=== PATIENT | male | born 1980 | race Caucasian/White ===

== ENCOUNTER 2025-01-11 12:56 | Inpatient (IN) | payer MEDICAID, OTHER, SELFPAY ==
--- NOTE | 2025-01-11 13:33 | HO.PM.IMCN ---
History of Present Illness Data of Consult Service Date: 01/11/25 Primary Care Provider: Unknown Physician HPI Reason for consult: Medical consult 44-year-old male with a history of polysubstance use, major depressive disorder, ADHD generalized anxiety disorder, PTSD, low testosterone levels, recently released from long-term 4 days ago presented to [facility] with suicide ideation with a plan to hang himself. Patient had a previous suicide attempt in 2018 and was on life support for prolonged period. EKG demonstrates normal sinus rhythm. His CMP without any abnormalities or evidence of renal or kidney impairment. CBC without leukocytosis or anemia. Tox screen positive for buprenorphine, negative for other substances. On exam he reports right shoulder discomfort and spasm. Also reports a small lipoma to the right side of his abdomen. Otherwise no acute health concerns. Reports that he was previously taking testosterone 0.2 mg 2 transdermal packets daily. He was diagnosed in 2018. Was previously receiving his testosterone gel in long-term. Review of Systems Review of Systems: Denies any shortness of breath, chest pain, palpitations, dizziness, lightheadedness, headaches, dysuria, abdominal pain or discomfort, nausea, vomiting or diarrhea. Denies chills, body aches, muscle aches, fatigue or weight loss. Reports right shoulder spasms. PMFSH Social History Household Members: None Housing: Homeless Housing Other:: couch hopping Patient Tobacco Use Status: Former Tobacco user Have you been hit, kicked, punched, or otherwise hurt by someone within the past year? If so, by whom?: No Do you feel safe in your current relationship?: No Current Relationship Is there a partner from a previous relationship who is making you feel unsafe now?: No Are you made to feel afraid or neglected: No Spiritual Healthcare Practices: n/a Yazidi Healthcare Practices: n/a Cultural Healthcare Practices: n/a Advance Directives: No Advance Directives Information Provided: No Do you have a plan to hurt others: No Plan Recently lost weight without trying: No How much weight loss: Not applicable Eating poorly because of decreased appetite: No Nutrition screen score: 0 Nutrition Risks: No Nutritional Risk Poor oral hygiene: No Meds Allergies Allergy/AdvReac Type Severity Reaction Status Date / Time ketorolac Allergy Hives Verified 01/11/25 13:27 olanzapine Allergy Shortness Verified 01/11/25 13:27 of Breath Active Medications: Current Medications Acetaminophen (Acetaminophen 325 Mg Tablet) 650 mg PO Q6H PRN PRN Reason: Headache/Pain, Scale 1-10 Al Hydroxide/Mg Hydroxide (Magnesium Hydrox/Alum Hydrox 30 Ml Oral.Susp) 30 ml PO Q6H PRN PRN Reason: Heartburn/Nausea Bupropion HCl (Bupropion Hcl Xl 300 Mg Tab.Er.24h) 300 mg PO QAM NELDA Hydroxyzine HCl (Hydroxyzine Hcl 25 Mg Tablet) 25 mg PO Q6H PRN PRN Reason: mild anxiety Magnesium Hydroxide (Milk Of Magnesia 30 Ml Oral.Susp) 30 ml PO DAILY PRN PRN Reason: Constipation Nicotine (Nicotine 21 Mg Patch.Td24) 21 mg TRANSDERMA DAILY PRN PRN Reason: smoking cessation Nicotine Polacrilex (Nicotine Polacrilex 2 Mg Gum) 4 mg BUCCAL Q2H PRN PRN Reason: Nicotine Cravings Trazodone HCl (Trazodone Hcl 50 Mg Tablet) 50 mg PO BEDTIME MRX1 PRN PRN Reason: Insomnia Home Medications ?Medication ?Instructions ?Recorded ?Confirmed ?Last Taken ?Type buprenorphine HCl 8 mg sublingual 24 mg sublingual DAILY 01/11/25 01/11/25 Unknown History tablet bupropion HCl 300 mg 24 hr tablet, 300 mg PO QAM 01/11/25 01/11/25 Unknown History extended release (Wellbutrin XL) lisdexamfetamine 30 mg capsule 30 mg PO DAILY 01/11/25 01/11/25 Unknown History (Vyvanse) trazodone 100 mg tablet 100 mg PO DAILY 01/11/25 01/11/25 Unknown History Physical Exam Vital Signs and Narrative: CONST: Alert and oriented, in NAD. Well nourished HEENT: Normocephalic, atraumatic, MMM, Eyes clear, Neck supple RESP: Lungs clear, RRR even and regular HEART:,RRR, S1, S2. No edema GI:Abdomen Soft NT, ND. + BS times four :Deferred SKIN: Warm dry and intact, no visible lesions or rashes. Small lipoma to right side of abdomen, another small lipoma to left upper arm. No evidence of redness, pain or swelling NEURO:CN II-XII Intact bilaterally, Sensation intact. Speech clear PSYCH: Normal affect Musculoskeletal: Full range of motion of shoulder Assessment and Plan (1) Hypogonadism in male: Status: Acute Plan 44-year-old male with a past medical history listed below, admitted to inpatient psych for increased depression and suicidal ideation. Admitted for stabilization. Polysubstance use/major depressive disorder/ADHD/PTSD/generalized anxiety disorder Treatment per psychiatric team On buprenorphine Hypogonadism We will check testosterone levels Previously taking AndroGel 16.2 mg packets 2 packets daily. Diagnosed in 2018. Right shoulder pain Treat with tizanidine and Tylenol as needed Chronic low back pain Patient takes gabapentin 800 mg 3 times daily Lidoderm patch daily Thank you for allowing me to participate in the care of this patient. Will follow with you, please notify medical provider with any changes in condition or concerns.
[2025-01-11 14:00] VITALS: BP 141/85; PULSE 69; RESP 16; TEMP 36.7; O2SAT 100
--- NOTE | 2025-01-11 17:42 | PC.ADMIT ---
Pt arrived at 1305 from [facility]. Pt reports having recent SI with a plan to hang himself with a rope, and in fact had the rope in hand. Pt called staff command and control officer who encouraged him to go to ED. To summarize pt reports being a and coming home from a tour in [facility] to find his had cheated. He reports that while they were both drunk a verbal altercation led to police being called. Pt assaulted police and did 3 years in care home. He was recently released, has currently ankle monitor. He is currently going through a divorce, reports being homeless and has been couch hopping. He suffers from PTSD from the and care home. Tox screen positive only for suboxone (pt takes subutex). He reports no ETOH or drug use since release from residential, but has had problems with both in the past. Skin check was unremarkable. He h is A&O x4, linear and logical, calm and cooperative. He signed a CV with EL. He is on 15min checks.
[2025-01-11 20:00] VITALS: BP 145/101; PULSE 84; RESP 16; TEMP 36.9; O2SAT 96
[2025-01-12 08:10] LABS: Alanine Aminotransferase 44 U/L (0-40); Albumin Level 4.1 g/dL (3.5-5.0); Alkaline Phosphatase 64 U/L (39-117); Anion Gap 10 (12-20); Aspartate Amino Transferase 35 U/L (5-37); Blood Urea Nitrogen 18 mg/dL (9-16); Calcium 9.3 mg/dL (8.4-10.2); Carbon Dioxide 31 mmol/L (22-29); Chloride 104 mmol/L (96-108); Cholesterol 176 mg/dL (<200); Estimated Glomerular Filt Rate > 60; HDL Cholesterol 55 mg/dL (>40); Potassium 5.0 mmol/L (3.3-5.1); Sodium 140 mmol/L (135-145); Total Protein 7.2 g/dL (6.5-8.0); Triglycerides 73 mg/dL (<150)
[2025-01-12] MEDS: buPROPion HCl XL 300 MG TAB.ER.24H PO (08:17)
[2025-01-12] MEDS: Dextroamphetamine/Amphetamine XR 10 MG CAP.ER.24H 20 MG PO (08:17)
--- NOTE | 2025-01-12 08:45 | HO.PSYADMNOT ---
HPI Date of Service: 01/12/25 Chief Complaint: decompensation Sources of Information: patient interviewed, chart reviewed and crisis/core team assessment reviewed HPI Subjective Notes: Galvan Warning, Conditional Voluntary and 3 Day Narrative: Patient is a 44-year-old with history of PTSD, remote substance abuse, ADHD, depression, low testosterone recently released from custodial 4 days ago who presents for suicidal ideation in the face of off medication psychosocial stressors. Patient reports that he has significant exposure to traumatic situations for his time in the and ongoing PTSD symptoms. Patient used to struggle with alcohol and opiate/pain killer addiction but has been fully sober for the past 4 years. In custodial, patient's mood was overall adequate on current medication regimen. This past week, suddenly without any warning he was released from custodial. He was not given any refills on any of his prescriptions. Off medications, without any chance to prepare for his discharge, no place to live Patient was overwhelmed, and became emotionally dysregulated. Patient became suicidal and had planned to hang himself with his belt. However he looked in the mirror, saw the tattoo of his daughter's name on his face and knew that he would not do this. Instead presented to the hospital for help. Patient was gratefully restarted on medication in the emergency room and is now feeling much better. Past Psychiatric History: History of 1 suicide attempt in 2018 by overdose; resulted in ICU admission Medical Evaluation Reviewed: Yes [facility] Medical History (Updated 01/12/25 @ 09:04 by Edgard Bennett MD) Opioid use disorder, moderate, in sustained remission PTSD (post-traumatic stress disorder) MDD (major depressive disorder) Family History: Defer Social History: [place] Has ex- and children Substance History: Sober for 4 years; previously alcohol 8 drinks daily; pain medication addiction, sober on Subutex Trauma History: Significant trauma from numerous combat experience Diagnostics Vital Signs (24Hr): Vital Signs - 24 hr 01/11/25 14:00 01/11/25 20:00 Temperature 98.1 F 98.4 F Pulse Rate 69 84 Respiratory Rate 16 16 Blood Pressure 141/85 H 145/101 H Pulse Oximetry 100 96 Oxygen Delivery Method Room Air Labs 01/12/25 07:42 Labs: Laboratory Results - last 48 hr 01/12/25 07:42 Sodium 140 Potassium 5.0 Chloride 104 Carbon Dioxide 31 H Anion Gap 10 L BUN 18 H Creatinine 0.88 Estim Creat Clear Calc TNP Estimated GFR > 60 Random Glucose 109 Estimat Average Glucose 126 Hemoglobin A1c % 6.0 Calcium 9.3 Total Bilirubin 0.2 AST 35 ALT 44 H Alkaline Phosphatase 64 Total Protein 7.2 Albumin 4.1 Triglycerides 73 Cholesterol 176 LDL Cholesterol, Calc 107 H HDL Cholesterol 55 TSH 1.32 Meds/Allergies Meds Home Medications ?Medication ?Instructions ?Recorded ?Confirmed ?Type buprenorphine HCl 8 mg sublingual 24 mg sublingual DAILY 01/11/25 01/11/25 History tablet bupropion HCl 300 mg 24 hr tablet, 300 mg PO QAM 01/11/25 01/11/25 History extended release (Wellbutrin XL) lisdexamfetamine 30 mg capsule 30 mg PO DAILY 01/11/25 01/11/25 History (Vyvanse) trazodone 100 mg tablet 100 mg PO DAILY 01/11/25 01/11/25 History Allergies Allergies Allergy/AdvReac Type Severity Reaction Status Date / Time ketorolac Allergy Hives Verified 01/11/25 13:27 olanzapine Allergy Shortness Verified 01/11/25 13:27 of Breath Assessment & Plan Assessment & Plan (1) MDD (major depressive disorder): Status: Acute Code(s): F32.9 - Major depressive disorder, single episode, unspecified (2) PTSD (post-traumatic stress disorder): Status: Acute Code(s): F43.10 - Post-traumatic stress disorder, unspecified (3) Hypogonadism in male: Status: Acute Code(s): E29.1 - Testicular hypofunction (4) Opioid use disorder, moderate, in sustained remission: Status: Acute Code(s): F11.21 - Opioid dependence, in remission Plan HPI: Patient is a 44-year-old with history of PTSD, remote substance abuse, ADHD, depression, low testosterone recently released from custodial 4 days ago who presents for suicidal ideation in the face of off medication psychosocial stressors. Patient reports that he has significant exposure to traumatic situations for his time in the and ongoing PTSD symptoms. Patient used to struggle with alcohol and opiate/pain killer addiction but has been fully sober for the past 4 years. In custodial, patient's mood was overall adequate on current medication regimen. This past week, suddenly without any warning he was released from custodial. He was not given any refills on any of his prescriptions. Off medications, without any chance to prepare for his discharge, no place to live Patient was overwhelmed, and became emotionally dysregulated. Patient became suicidal and had planned to hang himself with his belt. However he looked in the mirror, saw the tattoo of his daughter's name on his face and knew that he would not do this. Instead presented to the hospital for help. Patient was gratefully restarted on medication in the emergency room and is now feeling much better. Formulation/clinical reasoning: Patient seems to have been relatively stable while in custodial but depression anxiety researched when patient was suddenly released from custodial without any plans or medications. Patient was restarted on meds in ED and is starting to feel better. Patient is trying to put together plan Plan: CV Q 15 minute checks Continue home medications: Wellbutrin XL 300 mg Trazodone 100 mg q.h.s. Gabapentin 800 mg t.i.d. Subutex 24 mg daily Vyvanse/Adderall Androgen gel (not on formulary) Patient educated on: diagnosis, medication risk/benefits, substance abuse, therapeutic strategies and medical condition Informed Consent: understands Reason for continued inpatient stay Substantial Risk for: rapid decompensation Statement Statement: I have reviewed the history and physical and performed a pertinent examination on my patient. No changes have occurred unless specified. If the History and Physical was not performed prior to admission, the Hospitalist's service will be consulted for completing the admission physical. Time Spent With Patient Time: Total time managing care of this patient today ____ minutes.
[2025-01-12 11:55] VITALS: BP 126/89; PULSE 80; TEMP 36.4; O2SAT 99
--- NOTE | 2025-01-12 16:31 | HO.PSYCHPN ---
Subjective Subjective Date of Service: 01/12/25 Reason For Visit: decompensation Interim History: met with patient; discussed with team reports feeling better back on medications; mood is better and no SI. Reports difficult conversation w/ medical office secretary and pt just learned his ex- moved with the kids to [place]. He says he as joint custody and this illegal but says he'll work on himself first and then work w/ medical office secretary with this issue. Drawer In [employer] discussed coping strategies Mental Status Exam Mental Status Exam Narrative: Pt is alert and oriented; behavior is cooperative, friendly and calm; patient is not in distress; dressed in casual attire with unkempt hair but adequate hygiene; mood is described as ok and affect congruent; eye contact appropriate; Speech is normal rate, volume and prosody and not pressured; no psychomotor agitation/retardation present; thought process is organized and goal directed; Thought content is on tx; otherwise pertinent to relevant topics and without any delusional content, paranoid ideations or grandiosity; denies any SI/HI. Denies AVH and there is no evidence of perceptual disturbance. Patients insight and judgment appear intact. Diagnostics Vital Signs (24Hr): Vital Signs - 24 hr 01/11/25 20:00 01/12/25 11:55 Temperature 98.4 F 97.5 F Pulse Rate 84 80 Respiratory Rate 16 Blood Pressure 145/101 H 126/89 Pulse Oximetry 96 99 Oxygen Delivery Method Room Air Labs 01/12/25 07:42 Labs: Laboratory Results - last 48 hr 01/12/25 07:42 Sodium 140 Potassium 5.0 Chloride 104 Carbon Dioxide 31 H Anion Gap 10 L BUN 18 H Creatinine 0.88 Estim Creat Clear Calc TNP Estimated GFR > 60 Random Glucose 109 Estimat Average Glucose 126 Hemoglobin A1c % 6.0 Calcium 9.3 Total Bilirubin 0.2 AST 35 ALT 44 H Alkaline Phosphatase 64 Total Protein 7.2 Albumin 4.1 Triglycerides 73 Cholesterol 176 LDL Cholesterol, Calc 107 H HDL Cholesterol 55 TSH 1.32 Medications Medications Current Medications Acetaminophen (Acetaminophen 325 Mg Tablet) 650 mg PO Q6H PRN PRN Reason: Headache/Pain, Scale 1-10 Al Hydroxide/Mg Hydroxide (Magnesium Hydrox/Alum Hydrox 30 Ml Oral.Susp) 30 ml PO Q6H PRN PRN Reason: Heartburn/Nausea Amphetamine/Dextroamphetamine (Dextroamphetamine/Amphetamine Xr 10 Mg Cap.Er.24h) 20 mg PO DAILY [facility] Last Admin: 01/12/25 08:17 Dose: 20 mg Buprenorphine HCl (Buprenorphine Hcl 8 Mg Tab.Subl) 24 mg SUBLINGUAL DAILY [facility] Last Admin: 01/12/25 08:57 Dose: 24 mg Bupropion HCl (Bupropion Hcl Xl 300 Mg Tab.Er.24h) 300 mg PO DAILY [facility] Last Admin: 01/12/25 08:17 Dose: 300 mg Gabapentin (Gabapentin 400 Mg Capsule) 800 mg PO TID [facility] Last Admin: 01/12/25 15:32 Dose: 800 mg Hydroxyzine HCl (Hydroxyzine Hcl 25 Mg Tablet) 25 mg PO Q6H PRN PRN Reason: mild anxiety Lidocaine (Lidocaine 4 % Patch Adh..Patch) 1 patch TRANSDERMA DAILY [facility]; Protocol Last Admin: 01/12/25 10:15 Dose: Not Given Magnesium Hydroxide (Milk Of Magnesia 30 Ml Oral.Susp) 30 ml PO DAILY PRN PRN Reason: Constipation Nicotine (Nicotine 21 Mg Patch.Td24) 21 mg TRANSDERMA DAILY PRN PRN Reason: smoking cessation Nicotine Polacrilex (Nicotine Polacrilex 2 Mg Gum) 4 mg BUCCAL Q2H PRN PRN Reason: Nicotine Cravings Prazosin HCl (Prazosin Hcl 1 Mg Capsule) 2 mg PO BEDTIME [facility]; Protocol Last Admin: 01/11/25 20:30 Dose: 2 mg Promethazine HCl (Promethazine Hcl 25 Mg Tablet) 25 mg PO Q8H PRN PRN Reason: Nausea and Vomiting Last Admin: 01/11/25 16:32 Dose: 25 mg Tizanidine HCl (Tizanidine Hcl 4 Mg Tablet) 4 mg PO TID PRN PRN Reason: Muscle spasm Last Admin: 01/11/25 20:30 Dose: 4 mg Trazodone HCl (Trazodone Hcl 50 Mg Tablet) 50 mg PO BEDTIME MRX1 PRN PRN Reason: Insomnia Trazodone HCl (Trazodone Hcl 100 Mg Tablet) 100 mg PO BEDTIME [facility] Last Admin: 01/11/25 20:30 Dose: 100 mg Allergies Allergies Allergy/AdvReac Type Severity Reaction Status Date / Time ketorolac Allergy Hives Verified 01/11/25 13:27 olanzapine Allergy Shortness Verified 01/11/25 13:27 of Breath Assessment & Plan Assessment & Plan (1) MDD (major depressive disorder): Status: Acute Code(s): F32.9 - Major depressive disorder, single episode, unspecified (2) PTSD (post-traumatic stress disorder): Status: Acute Code(s): F43.10 - Post-traumatic stress disorder, unspecified (3) Hypogonadism in male: Status: Acute Code(s): E29.1 - Testicular hypofunction (4) Opioid use disorder, moderate, in sustained remission: Status: Acute Code(s): F11.21 - Opioid dependence, in remission Plan HPI: Patient is a 44-year-old with history of PTSD, remote substance abuse, ADHD, depression, low testosterone recently [facility] ago who presents for suicidal ideation in the face of off medication psychosocial stressors. Patient reports that he has significant exposure to traumatic situations for his time in the and ongoing PTSD symptoms. Patient used to struggle with alcohol and opiate/pain killer addiction but has been fully sober for the past 4 years. In penitentiary, patient's mood was overall adequate on current medication regimen. This past week, suddenly without any warning he was released from penitentiary. He was not given any refills on any of his prescriptions. Off medications, without any chance to prepare for his discharge, no place to live Patient was overwhelmed, and became emotionally dysregulated. Patient became suicidal and had planned to hang himself with his belt. However he looked in the mirror, saw the tattoo of his daughter's name on his face and knew that he would not do this. Instead presented to the hospital for help. Patient was gratefully restarted on medication in the emergency room and is now feeling much better. Formulation/clinical reasoning: Patient seems to have been relatively stable while in penitentiary but depression anxiety researched when patient was suddenly released from penitentiary without any plans or medications. Patient was restarted on meds in ED and is starting to feel better. Patient is trying to put together plan Plan: CV Q 15 minute checks Continue home medications: Wellbutrin XL 300 mg Trazodone 100 mg q.h.s. Gabapentin 800 mg t.i.d. Subutex 24 mg daily Vyvanse/Adderall Androgen gel (not on formulary) Patient educated on: diagnosis, medication risk/benefits and therapeutic strategies Informed Consent: understands Reason for continued inpatient stay Substantial Risk for: rapid decompensation Time Spent With Patient Time: Total time managing care of this patient today ____ minutes.
[2025-01-12 20:00] VITALS: BP 133/80; PULSE 83; RESP 18; TEMP 36.6; O2SAT 96
[2025-01-13 08:00] VITALS: BP 124/59; PULSE 88; TEMP 36.5; O2SAT 95
[2025-01-13] MEDS: Lidocaine 4 % Patch ADH..PATCH 1 PATCH TRANSDERMA (08:31)
[2025-01-13] MEDS: Dextroamphetamine/Amphetamine XR 10 MG CAP.ER.24H 20 MG PO (08:32)
[2025-01-13] MEDS: buPROPion HCl XL 300 MG TAB.ER.24H PO (08:32)
--- NOTE | 2025-01-13 09:57 | HO.PSYCHPN ---
Subjective Subjective Date of Service: 01/13/25 Reason For Visit: decompensation Interim History: Patient reports feeling OK. Respectful. Calm and cooperative. Says he is feeling medications are effective. Says he is working on checking off things I need to do. Wants to find where his took his daughter. No SI. Adherent to medications. Review of Systems Review of Systems Denies any shortness of breath, chest pain, palpitations, dizziness, lightheadedness, headaches, dysuria, abdominal pain or discomfort, nausea, vomiting or diarrhea. Denies chills, body aches, muscle aches, fatigue or weight loss. Reports right shoulder spasms. Diagnostics Vital Signs (24Hr): Vital Signs - 24 hr 01/12/25 11:55 01/12/25 20:00 Temperature 97.5 F 98 F Pulse Rate 80 83 Respiratory Rate 18 Blood Pressure 126/89 133/80 Pulse Oximetry 99 96 Oxygen Delivery Method Room Air Room Air Labs 01/12/25 07:42 Labs: Laboratory Results - last 48 hr 01/12/25 07:42 Sodium 140 Potassium 5.0 Chloride 104 Carbon Dioxide 31 H Anion Gap 10 L BUN 18 H Creatinine 0.88 Estim Creat Clear Calc TNP Estimated GFR > 60 Random Glucose 109 Estimat Average Glucose 126 Hemoglobin A1c % 6.0 Calcium 9.3 Total Bilirubin 0.2 AST 35 ALT 44 H Alkaline Phosphatase 64 Total Protein 7.2 Albumin 4.1 Triglycerides 73 Cholesterol 176 LDL Cholesterol, Calc 107 H HDL Cholesterol 55 TSH 1.32 Medications Medications Current Medications Acetaminophen (Acetaminophen 325 Mg Tablet) 650 mg PO Q6H PRN PRN Reason: Headache/Pain, Scale 1-10 Last Admin: 01/13/25 06:05 Dose: 650 mg Al Hydroxide/Mg Hydroxide (Magnesium Hydrox/Alum Hydrox 30 Ml Oral.Susp) 30 ml PO Q6H PRN PRN Reason: Heartburn/Nausea Amphetamine/Dextroamphetamine (Dextroamphetamine/Amphetamine Xr 10 Mg Cap.Er.24h) 20 mg PO DAILY [facility] Last Admin: 01/13/25 08:32 Dose: 20 mg Buprenorphine HCl (Buprenorphine Hcl 8 Mg Tab.Subl) 24 mg SUBLINGUAL DAILY [facility] Last Admin: 01/13/25 08:32 Dose: 24 mg Bupropion HCl (Bupropion Hcl Xl 300 Mg Tab.Er.24h) 300 mg PO DAILY [facility] Last Admin: 01/13/25 08:32 Dose: 300 mg Gabapentin (Gabapentin 400 Mg Capsule) 800 mg PO TID [facility] Last Admin: 01/13/25 08:32 Dose: 800 mg Hydroxyzine HCl (Hydroxyzine Hcl 25 Mg Tablet) 25 mg PO Q6H PRN PRN Reason: mild anxiety Lidocaine (Lidocaine 4 % Patch Adh..Patch) 1 patch TRANSDERMA DAILY [facility]; Protocol Last Admin: 01/13/25 08:31 Dose: 1 patch Magnesium Hydroxide (Milk Of Magnesia 30 Ml Oral.Susp) 30 ml PO DAILY PRN PRN Reason: Constipation Nicotine (Nicotine 21 Mg Patch.Td24) 21 mg TRANSDERMA DAILY PRN PRN Reason: smoking cessation Nicotine Polacrilex (Nicotine Polacrilex 2 Mg Gum) 4 mg BUCCAL Q2H PRN PRN Reason: Nicotine Cravings Prazosin HCl (Prazosin Hcl 1 Mg Capsule) 2 mg PO BEDTIME [facility]; Protocol Last Admin: 01/12/25 21:37 Dose: Not Given Promethazine HCl (Promethazine Hcl 25 Mg Tablet) 25 mg PO Q8H PRN PRN Reason: Nausea and Vomiting Last Admin: 01/13/25 09:26 Dose: 25 mg Tizanidine HCl (Tizanidine Hcl 4 Mg Tablet) 4 mg PO TID PRN PRN Reason: Muscle spasm Last Admin: 01/12/25 21:35 Dose: 4 mg Trazodone HCl (Trazodone Hcl 50 Mg Tablet) 50 mg PO BEDTIME MRX1 PRN PRN Reason: Insomnia Trazodone HCl (Trazodone Hcl 100 Mg Tablet) 100 mg PO BEDTIME [facility] Last Admin: 01/12/25 21:34 Dose: 100 mg Allergies Allergies Allergy/AdvReac Type Severity Reaction Status Date / Time ketorolac Allergy Hives Verified 01/11/25 13:27 olanzapine Allergy Shortness Verified 01/11/25 13:27 of Breath Assessment & Plan Assessment & Plan (1) MDD (major depressive disorder): Status: Acute Code(s): F32.9 - Major depressive disorder, single episode, unspecified (2) PTSD (post-traumatic stress disorder): Status: Acute Code(s): F43.10 - Post-traumatic stress disorder, unspecified (3) Hypogonadism in male: Status: Acute Code(s): E29.1 - Testicular hypofunction (4) Opioid use disorder, moderate, in sustained remission: Status: Acute Code(s): F11.21 - Opioid dependence, in remission Plan HPI: Patient is a 44-year-old with history of PTSD, remote substance abuse, ADHD, depression, low testosterone recently released from care home 4 days ago who presents for suicidal ideation in the face of off medication psychosocial stressors. Patient reports that he has significant exposure to traumatic situations for his time in the and ongoing PTSD symptoms. Patient used to struggle with alcohol and opiate/pain killer addiction but has been fully sober for the past 4 years. In care home, patient's mood was overall adequate on current medication regimen. This past week, suddenly without any warning he was released from care home. He was not given any refills on any of his prescriptions. Off medications, without any chance to prepare for his discharge, no place to live Patient was overwhelmed, and became emotionally dysregulated. Patient became suicidal and had planned to hang himself with his belt. However he looked in the mirror, saw the tattoo of his daughter's name on his face and knew that he would not do this. Instead presented to the hospital for help. Patient was gratefully restarted on medication in the emergency room and is now feeling much better. Formulation/clinical reasoning: Patient seems to have been relatively stable while in care home but depression anxiety researched when patient was suddenly released from care home without any plans or medications. Patient was restarted on meds in ED and is starting to feel better. Patient is trying to put together plan Plan: CV Q 15 minute checks Continue home medications: Wellbutrin XL 300 mg Trazodone 100 mg q.h.s. Gabapentin 800 mg t.i.d. Subutex 24 mg daily Vyvanse/Adderall Androgen gel (not on formulary) 01/13: continue current management and treatment plan. Reason for continued inpatient stay Substantial Risk for: inability to function and rapid decompensation Time Spent With Patient Time: Total time managing care of this patient today ____ minutes.
[2025-01-13 20:29] VITALS: BP 130/74; PULSE 92; RESP 18; TEMP 36.9; O2SAT 99
[2025-01-14 08:21] VITALS: BP 130/88; PULSE 85; TEMP 36.3; O2SAT 96
[2025-01-14] MEDS: Dextroamphetamine/Amphetamine XR 10 MG CAP.ER.24H 20 MG PO (08:52)
[2025-01-14] MEDS: buPROPion HCl XL 300 MG TAB.ER.24H PO (08:55)
--- NOTE | 2025-01-14 09:28 | HO.PSYCHPN ---
Subjective Subjective Date of Service: 01/14/25 Reason For Visit: decompensation Interim History: Patient reports feeling aggravated today but I was able to walk away Apparently a patient took the remote to the other TV room before he could find the [employer] channel and he got irritated but says he stayed in control and I just walked away . Says he is feeling medications are effective. Says he is working on tasks after discharge. No SI. Adherent to medications. Review of Systems Review of Systems Denies any shortness of breath, chest pain, palpitations, dizziness, lightheadedness, headaches, dysuria, abdominal pain or discomfort, nausea, vomiting or diarrhea. Denies chills, body aches, muscle aches, fatigue or weight loss. Reports right shoulder spasms. Diagnostics Vital Signs (24Hr): Vital Signs - 24 hr 01/13/25 20:29 01/14/25 08:21 Temperature 98.5 F 97.3 F Pulse Rate 92 85 Respiratory Rate 18 Blood Pressure 130/74 130/88 Pulse Oximetry 99 96 Oxygen Delivery Method Room Air Room Air Labs 01/12/25 07:42 Medications Medications Current Medications Acetaminophen (Acetaminophen 325 Mg Tablet) 650 mg PO Q6H PRN PRN Reason: Headache/Pain, Scale 1-10 Last Admin: 01/13/25 16:22 Dose: 650 mg Al Hydroxide/Mg Hydroxide (Magnesium Hydrox/Alum Hydrox 30 Ml Oral.Susp) 30 ml PO Q6H PRN PRN Reason: Heartburn/Nausea Amphetamine/Dextroamphetamine (Dextroamphetamine/Amphetamine Xr 10 Mg Cap.Er.24h) 20 mg PO DAILY [facility] Last Admin: 01/14/25 08:52 Dose: 20 mg Buprenorphine HCl (Buprenorphine Hcl 8 Mg Tab.Subl) 24 mg SUBLINGUAL DAILY [facility] Last Admin: 01/14/25 08:53 Dose: 24 mg Bupropion HCl (Bupropion Hcl Xl 300 Mg Tab.Er.24h) 300 mg PO DAILY [facility] Last Admin: 01/14/25 08:55 Dose: 300 mg Gabapentin (Gabapentin 400 Mg Capsule) 800 mg PO TID [facility] Last Admin: 01/14/25 08:53 Dose: 800 mg Hydroxyzine HCl (Hydroxyzine Hcl 25 Mg Tablet) 25 mg PO Q6H PRN PRN Reason: mild anxiety Lidocaine (Lidocaine 4 % Patch Adh..Patch) 1 patch TRANSDERMA DAILY [facility]; Protocol Last Admin: 01/13/25 08:31 Dose: 1 patch Magnesium Hydroxide (Milk Of Magnesia 30 Ml Oral.Susp) 30 ml PO DAILY PRN PRN Reason: Constipation Nicotine (Nicotine 21 Mg Patch.Td24) 21 mg TRANSDERMA DAILY PRN PRN Reason: smoking cessation Nicotine Polacrilex (Nicotine Polacrilex 2 Mg Gum) 4 mg BUCCAL Q2H PRN PRN Reason: Nicotine Cravings Prazosin HCl (Prazosin Hcl 1 Mg Capsule) 2 mg PO BEDTIME [facility]; Protocol Last Admin: 01/13/25 21:54 Dose: Not Given Promethazine HCl (Promethazine Hcl 25 Mg Tablet) 25 mg PO Q8H PRN PRN Reason: Nausea and Vomiting Last Admin: 01/13/25 21:03 Dose: 25 mg Tizanidine HCl (Tizanidine Hcl 4 Mg Tablet) 4 mg PO TID PRN PRN Reason: Muscle spasm Last Admin: 01/13/25 21:03 Dose: 4 mg Trazodone HCl (Trazodone Hcl 50 Mg Tablet) 50 mg PO BEDTIME MRX1 PRN PRN Reason: Insomnia Trazodone HCl (Trazodone Hcl 100 Mg Tablet) 100 mg PO BEDTIME [facility] Last Admin: 01/13/25 21:03 Dose: 100 mg Allergies Allergies Allergy/AdvReac Type Severity Reaction Status Date / Time ketorolac Allergy Hives Verified 01/11/25 13:27 olanzapine Allergy Shortness Verified 01/11/25 13:27 of Breath Assessment & Plan Assessment & Plan (1) MDD (major depressive disorder): Status: Acute Code(s): F32.9 - Major depressive disorder, single episode, unspecified (2) PTSD (post-traumatic stress disorder): Status: Acute Code(s): F43.10 - Post-traumatic stress disorder, unspecified (3) Hypogonadism in male: Status: Acute Code(s): E29.1 - Testicular hypofunction (4) Opioid use disorder, moderate, in sustained remission: Status: Acute Code(s): F11.21 - Opioid dependence, in remission Plan HPI: Patient is a 44-year-old with history of PTSD, remote substance abuse, ADHD, depression, low testosterone recently released from jail 4 days ago who presents for suicidal ideation in the face of off medication psychosocial stressors. Patient reports that he has significant exposure to traumatic situations for his time in the and ongoing PTSD symptoms. Patient used to struggle with alcohol and opiate/pain killer addiction but has been fully sober for the past 4 years. In jail, patient's mood was overall adequate on current medication regimen. This past week, suddenly without any warning he was released from jail. He was not given any refills on any of his prescriptions. Off medications, without any chance to prepare for his discharge, no place to live Patient was overwhelmed, and became emotionally dysregulated. Patient became suicidal and had planned to hang himself with his belt. However he looked in the mirror, saw the tattoo of his daughter's name on his face and knew that he would not do this. Instead presented to the hospital for help. Patient was gratefully restarted on medication in the emergency room and is now feeling much better. Formulation/clinical reasoning: Patient seems to have been relatively stable while in jail but depression anxiety researched when patient was suddenly released from jail without any plans or medications. Patient was restarted on meds in ED and is starting to feel better. Patient is trying to put together plan Plan: CV Q 15 minute checks Continue home medications: Wellbutrin XL 300 mg Trazodone 100 mg q.h.s. Gabapentin 800 mg t.i.d. Subutex 24 mg daily Vyvanse/Adderall Androgen gel (not on formulary) 01/13: continue current management and treatment plan. 01/14: continue current management and treatment plan. Reason for continued inpatient stay Substantial Risk for: harm to self, inability to function and rapid decompensation Time Spent With Patient Time: Total time managing care of this patient today ____ minutes.
[2025-01-14] MEDS: Lidocaine 4 % Patch ADH..PATCH 1 PATCH TRANSDERMA (12:50)
[2025-01-14] MEDS: Milk of Magnesia 30 ML ORAL.SUSP PO (16:34)
[2025-01-14 19:51] VITALS: BP 115/67; PULSE 102; RESP 15; TEMP 36.8; O2SAT 92
[2025-01-15 08:31] VITALS: BP 111/70; PULSE 83; TEMP 36.6; O2SAT 96
[2025-01-15] MEDS: Dextroamphetamine/Amphetamine XR 10 MG CAP.ER.24H 20 MG PO (09:05)
[2025-01-15] MEDS: Lidocaine 4 % Patch ADH..PATCH 1 PATCH TRANSDERMA (09:05)
[2025-01-15] MEDS: buPROPion HCl XL 300 MG TAB.ER.24H PO (09:05)
--- NOTE | 2025-01-15 12:37 | HO.PSYCHPN ---
Subjective Subjective Date of Service: 01/15/25 Reason For Visit: decompensation Interim History: met with patient; discussed with team Patient reports that he is doing good. Says he is feeling that he is coming back to his normal self and that it is good to be back on a regimen. Patient shared about some of his past psychiatric admissions which he says were in the context of PTSD from returning from combat and getting overwhelmed dealing with his now ex- who he reports has bipolar. 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 Mental Status Exam Mental Status Exam Narrative: Pt is alert and oriented; behavior is cooperative, friendly and calm; patient is not in distress; dressed in casual attire with adequate hygiene and grooming; tattoo on his right cheek; mood is described as good and affect congruent, bright, calm; eye contact appropriate; Speech is normal rate, volume and prosody and not pressured; no psychomotor agitation/retardation present; thought process is organized and goal directed; Thought content is on tx; otherwise pertinent to relevant topics and without any delusional content, paranoid ideations or grandiosity; denies any SI/HI. Denies AVH and there is no evidence of perceptual disturbance. Patients insight and judgment fair. Diagnostics Vital Signs (24Hr): Vital Signs - 24 hr 01/14/25 19:51 01/15/25 08:31 Temperature 98.2 F 97.9 F Pulse Rate 102 H 83 Respiratory Rate 15 Blood Pressure 115/67 111/70 Pulse Oximetry 92 96 Oxygen Delivery Method Room Air Labs 01/12/25 07:42 Medications Medications Current Medications Acetaminophen (Acetaminophen 325 Mg Tablet) 650 mg PO Q6H PRN PRN Reason: Headache/Pain, Scale 1-10 Last Admin: 01/14/25 16:34 Dose: 650 mg Al Hydroxide/Mg Hydroxide (Magnesium Hydrox/Alum Hydrox 30 Ml Oral.Susp) 30 ml PO Q6H PRN PRN Reason: Heartburn/Nausea Amphetamine/Dextroamphetamine (Dextroamphetamine/Amphetamine Xr 10 Mg Cap.Er.24h) 20 mg PO DAILY [facility] Last Admin: 01/15/25 09:05 Dose: 20 mg Amphetamine/Dextroamphetamine (Dextroamphetamine/Amphetamine Xr 10 Mg Cap.Er.24h) 10 mg PO DAILY@1400 [facility] Buprenorphine HCl (Buprenorphine Hcl 8 Mg Tab.Subl) 24 mg SUBLINGUAL DAILY [facility] Last Admin: 01/15/25 09:06 Dose: 24 mg Bupropion HCl (Bupropion Hcl Xl 300 Mg Tab.Er.24h) 300 mg PO DAILY [facility] Last Admin: 01/15/25 09:05 Dose: 300 mg Gabapentin (Gabapentin 400 Mg Capsule) 800 mg PO TID [facility] Last Admin: 01/15/25 09:05 Dose: 800 mg Hydroxyzine HCl (Hydroxyzine Hcl 25 Mg Tablet) 25 mg PO Q6H PRN PRN Reason: mild anxiety Lidocaine (Lidocaine 4 % Patch Adh..Patch) 1 patch TRANSDERMA DAILY [facility]; Protocol Last Admin: 01/15/25 09:05 Dose: 1 patch Magnesium Hydroxide (Milk Of Magnesia 30 Ml Oral.Susp) 30 ml PO DAILY PRN PRN Reason: Constipation Last Admin: 01/14/25 16:34 Dose: 30 ml Nicotine (Nicotine 21 Mg Patch.Td24) 21 mg TRANSDERMA DAILY PRN PRN Reason: smoking cessation Nicotine Polacrilex (Nicotine Polacrilex 2 Mg Gum) 4 mg BUCCAL Q2H PRN PRN Reason: Nicotine Cravings Prazosin HCl (Prazosin Hcl 1 Mg Capsule) 2 mg PO BEDTIME [facility]; Protocol Last Admin: 01/14/25 20:57 Dose: 2 mg Promethazine HCl (Promethazine Hcl 25 Mg Tablet) 25 mg PO Q8H PRN PRN Reason: Nausea and Vomiting Last Admin: 01/14/25 14:50 Dose: 25 mg Tizanidine HCl (Tizanidine Hcl 4 Mg Tablet) 4 mg PO TID PRN PRN Reason: Muscle spasm Last Admin: 01/14/25 20:56 Dose: 4 mg Trazodone HCl (Trazodone Hcl 50 Mg Tablet) 50 mg PO BEDTIME MRX1 PRN PRN Reason: Insomnia Trazodone HCl (Trazodone Hcl 100 Mg Tablet) 100 mg PO BEDTIME [facility] Last Admin: 01/14/25 20:57 Dose: 100 mg Allergies Allergies Allergy/AdvReac Type Severity Reaction Status Date / Time ketorolac Allergy Hives Verified 01/11/25 13:27 olanzapine Allergy Shortness Verified 01/11/25 13:27 of Breath Assessment & Plan Assessment & Plan (1) MDD (major depressive disorder): Status: Acute Code(s): F32.9 - Major depressive disorder, single episode, unspecified (2) PTSD (post-traumatic stress disorder): Status: Acute Code(s): F43.10 - Post-traumatic stress disorder, unspecified (3) Hypogonadism in male: Status: Acute Code(s): E29.1 - Testicular hypofunction (4) Opioid use disorder, moderate, in sustained remission: Status: Acute Code(s): F11.21 - Opioid dependence, in remission Plan HPI: Patient is a 44-year-old with history of PTSD, remote substance abuse, ADHD, depression, low testosterone recently [facility] who presents for suicidal ideation in the face of off medication psychosocial stressors. Patient reports that he has significant exposure to traumatic situations for his time in the and ongoing PTSD symptoms. Patient used to struggle with alcohol and opiate/pain killer addiction but has been fully sober for the past 4 years. In [facility], patient's mood was overall adequate on current medication regimen. This past week, suddenly without any warning [facility] was released from [facility]. He was not given any refills on any of his prescriptions. Off medications, without any chance to prepare for his discharge, no place to live Patient was overwhelmed, and became emotionally dysregulated. Patient became suicidal and had planned to hang himself with his belt. However he looked in the mirror, saw the tattoo of his daughter's name on his face and knew that he would not do this. Instead presented to the hospital for help. Patient was gratefully restarted on medication in the emergency room and is now feeling much better. Formulation/clinical reasoning: Patient seems to have been relatively stable while in [facility] but depression anxiety researched when patient was suddenly [facility] from [facility] without any plans or medications. Patient was restarted on meds in ED and is starting to feel better. Patient is trying to put together plan Hospital course: 01/15 patient doing well; reports good mood and is future oriented. No SI at all; team helping with dispo planning Plan: CV Q 15 minute checks Continue home medications: Wellbutrin XL 300 mg Trazodone 100 mg q.h.s. Gabapentin 800 mg t.i.d. Subutex 24 mg daily Vyvanse/Adderall Androgen gel (not on formulary) Patient educated on: diagnosis, medication risk/benefits and therapeutic strategies Informed Consent: understands Reason for continued inpatient stay Substantial Risk for: stable for discharge Time Spent With Patient Time: Total time managing care of this patient today ____ minutes.
[2025-01-15] MEDS: Dextroamphetamine/Amphetamine XR 10 MG CAP.ER.24H PO (13:22)
[2025-01-15] MEDS: Magnesium Hydrox/Alum Hydrox 30 ML ORAL.SUSP PO (15:10)
[2025-01-15] MEDS: Milk of Magnesia 30 ML ORAL.SUSP PO (16:58)
[2025-01-15 20:58] VITALS: BP 135/91; PULSE 94; RESP 18; TEMP 36.4; O2SAT 96
[2025-01-15] MEDS: Sodium Chloride 0.65 % Nasal 44 ML SPRBTL 1 SPRAY NOSTRIL-B (22:35)
[2025-01-16 08:00] VITALS: BP 141/71; PULSE 67; TEMP 36.9; O2SAT 93
[2025-01-16] MEDS: Dextroamphetamine/Amphetamine XR 10 MG CAP.ER.24H 20 MG PO (09:15)
[2025-01-16] MEDS: buPROPion HCl XL 300 MG TAB.ER.24H PO (09:15)
[2025-01-16] MEDS: Dextroamphetamine/Amphetamine XR 10 MG CAP.ER.24H PO (13:20)
[2025-01-16] MEDS: Sodium Chloride 0.65 % Nasal 44 ML SPRBTL 1 SPRAY NOSTRIL-B ×2 (13:20→21:09)
--- NOTE | 2025-01-16 17:35 | HO.PSYCHPN ---
Subjective Subjective Date of Service: 01/16/25 Reason For Visit: decompensation Interim History: met with pt; discussed with team pt remains doing well; mood is good and pt is future oriented. Discussed aftercare plans and progress he's made calling places. Discussed dealing w/ ex , kids...remains engaged in treatment Mental Status Exam Mental Status Exam Narrative: Pt is alert and oriented; behavior is cooperative, friendly and calm; patient is not in distress; dressed in casual attire with adequate hygiene and grooming; tattoo on his right cheek; mood is described as good and affect congruent, bright, calm; eye contact appropriate; Speech is normal rate, volume and prosody and not pressured; no psychomotor agitation/retardation present; thought process is organized and goal directed; Thought content is on tx; otherwise pertinent to relevant topics and without any delusional content, paranoid ideations or grandiosity; denies any SI/HI. Denies AVH and there is no evidence of perceptual disturbance. Patients insight and judgment fair. Diagnostics Vital Signs (24Hr): Vital Signs - 24 hr 01/15/25 20:58 01/16/25 08:00 Temperature 97.5 F 98.5 F Pulse Rate 94 67 Respiratory Rate 18 Blood Pressure 135/91 H 141/71 H Pulse Oximetry 96 93 Oxygen Delivery Method Room Air Room [facility] Labs 01/12/25 07:42 Medications Medications Current Medications Acetaminophen (Acetaminophen 325 Mg Tablet) 650 mg PO Q6H PRN PRN Reason: Headache/Pain, Scale 1-10 Last Admin: 01/16/25 14:55 Dose: 650 mg Al Hydroxide/Mg Hydroxide (Magnesium Hydrox/Alum Hydrox 30 Ml Oral.Susp) 30 ml PO Q6H PRN PRN Reason: Heartburn/Nausea Last Admin: 01/15/25 15:10 Dose: 30 ml Amphetamine/Dextroamphetamine (Dextroamphetamine/Amphetamine Xr 10 Mg Cap.Er.24h) 20 mg PO DAILY [facility] Last Admin: 01/16/25 09:15 Dose: 20 mg Amphetamine/Dextroamphetamine (Dextroamphetamine/Amphetamine Xr 10 Mg Cap.Er.24h) 10 mg PO DAILY@1400 [facility] Last Admin: 01/16/25 13:20 Dose: 10 mg Bisacodyl (Bisacodyl 10 Mg Supp.Rect) 10 mg [place] DAILY PRN PRN Reason: severe Constipation Buprenorphine HCl (Buprenorphine Hcl 8 Mg Tab.Subl) 24 mg SUBLINGUAL DAILY [facility] Last Admin: 01/16/25 09:14 Dose: 24 mg Bupropion HCl (Bupropion Hcl Xl 300 Mg Tab.Er.24h) 300 mg PO DAILY [facility] Last Admin: 01/16/25 09:15 Dose: 300 mg Docusate Sodium (Docusate Sodium 100 Mg Capsule) 100 mg PO BID [facility] Last Admin: 01/16/25 09:23 Dose: Not Given Gabapentin (Gabapentin 400 Mg Capsule) 800 mg PO TID [facility] Last Admin: 01/16/25 14:53 Dose: 800 mg Hydroxyzine HCl (Hydroxyzine Hcl 25 Mg Tablet) 25 mg PO Q6H PRN PRN Reason: mild anxiety Lidocaine (Lidocaine 4 % Patch Adh..Patch) 1 patch TRANSDERMA DAILY [facility]; Protocol Last Admin: 01/16/25 09:23 Dose: Not Given Magnesium Hydroxide (Milk Of Magnesia 30 Ml Oral.Susp) 30 ml PO DAILY PRN PRN Reason: Constipation Last Admin: 01/15/25 16:58 Dose: 30 ml Nicotine (Nicotine 21 Mg Patch.Td24) 21 mg TRANSDERMA DAILY PRN PRN Reason: smoking cessation Nicotine Polacrilex (Nicotine Polacrilex 2 Mg Gum) 4 mg BUCCAL Q2H PRN PRN Reason: Nicotine Cravings Prazosin HCl (Prazosin Hcl 1 Mg Capsule) 2 mg PO BEDTIME [facility]; Protocol Last Admin: 01/15/25 21:56 Dose: Not Given Promethazine HCl (Promethazine Hcl 25 Mg Tablet) 25 mg PO Q8H PRN PRN Reason: Nausea and Vomiting Last Admin: 01/14/25 14:50 Dose: 25 mg Pseudoephedrine HCl (Pseudoephedrine Hcl 30 Mg Tablet) 30 mg PO Q6H PRN PRN Reason: Nasal Congestion Senna (Sennosides 8.6 Mg Tablet) 17.2 mg PO BEDTIME [facility] Last Admin: 01/15/25 21:18 Dose: 17.2 mg Sodium Chloride (Sodium Chloride 0.65 % Nasal 44 Ml Sprbtl) 1 spray NOSTRIL-B Q4H PRN PRN Reason: Congestion Last Admin: 01/16/25 13:20 Dose: 1 spray Tizanidine HCl (Tizanidine Hcl 4 Mg Tablet) 4 mg PO TID PRN PRN Reason: Muscle spasm Last Admin: 01/15/25 21:19 Dose: 4 mg Trazodone HCl (Trazodone Hcl 50 Mg Tablet) 50 mg PO BEDTIME MRX1 PRN PRN Reason: Insomnia Trazodone HCl (Trazodone Hcl 100 Mg Tablet) 100 mg PO BEDTIME [facility] Last Admin: 01/15/25 21:18 Dose: 100 mg Allergies Allergies Allergy/AdvReac Type Severity Reaction Status Date / Time ketorolac Allergy Hives Verified 01/11/25 13:27 olanzapine Allergy Shortness Verified 01/11/25 13:27 of Breath Assessment & Plan Assessment & Plan (1) MDD (major depressive disorder): Status: Acute Code(s): F32.9 - Major depressive disorder, single episode, unspecified (2) PTSD (post-traumatic stress disorder): Status: Acute Code(s): F43.10 - Post-traumatic stress disorder, unspecified (3) Hypogonadism in male: Status: Acute Code(s): E29.1 - Testicular hypofunction (4) Opioid use disorder, moderate, in sustained remission: Status: Acute Code(s): F11.21 - Opioid dependence, in remission Plan HPI: Patient is a 44-year-old with history of PTSD, remote substance abuse, ADHD, depression, low testosterone recently [facility] who presents for suicidal ideation in the face of off medication psychosocial stressors. Patient reports that he has significant exposure to traumatic situations for his time in the and ongoing PTSD symptoms. Patient used to struggle with alcohol and opiate/pain killer addiction but has been fully sober for the past 4 years. In [facility], patient's mood was overall adequate on current medication regimen. This past week, suddenly without any warning he was released from [facility]. He was not given any refills on any of his prescriptions. Off medications, without any chance to prepare for his discharge, no place to live Patient was overwhelmed, and became emotionally dysregulated. Patient became suicidal and had planned to hang himself with his belt. However he looked in the mirror, saw the tattoo of his daughter's name on his face and knew that he would not do this. Instead presented to the hospital for help. Patient was gratefully restarted on medication in the emergency room and is now feeling much better. Formulation/clinical reasoning: Patient seems to have been relatively stable while in [facility] but depression anxiety researched when patient was suddenly released from [facility] without any plans or medications. Patient was restarted on meds in ED and is starting to feel better. Patient is trying to put together plan Hospital course: 01/15 patient doing well; reports good mood and is future oriented. No SI at all; team helping with dispo planning 01/16 doing well; continue tx plan; will try to get testosterone from outpt pharm pt remain in good behavioral and impulse control. He is appropriate with peers and staff and engaged in treatment pt is stable on current medication regimen Plan: CV Q 15 minute checks Continue home medications: Wellbutrin XL 300 mg Trazodone 100 mg q.h.s. Gabapentin 800 mg t.i.d. Subutex 24 mg daily Vyvanse/Adderall Androgen gel (not on formulary) Patient educated on: diagnosis, medication risk/benefits and therapeutic strategies Informed Consent: understands Reason for continued inpatient stay Substantial Risk for: stable for discharge Time Spent With Patient Time: Total time managing care of this patient today ____ minutes.
[2025-01-16 21:48] VITALS: BP 114/63; PULSE 80; RESP 16; TEMP 36.2; O2SAT 93
[2025-01-17] MEDS: buPROPion HCl XL 300 MG TAB.ER.24H PO (08:15)
[2025-01-17] MEDS: Dextroamphetamine/Amphetamine XR 10 MG CAP.ER.24H 20 MG PO (09:00)
[2025-01-17 09:07] VITALS: BP 110/64; PULSE 68; TEMP 35.7; O2SAT 99
[2025-01-17] MEDS: Lidocaine 4 % Patch ADH..PATCH 1 PATCH TRANSDERMA (11:00)
[2025-01-17] MEDS: Dextroamphetamine/Amphetamine XR 10 MG CAP.ER.24H PO (13:18)
--- NOTE | 2025-01-17 14:05 | P.PNPSI_ITS ---
Subjective Subjective Date of Service: 01/17/25 Reason For Visit: decompensation Interim History: Met with patient; discussed with team Patient remains doing well, engaged in treatment, appropriate with peers and staff. Accidentally swallowed Subutex this morning; bond underwriter allowed for 2nd dose Mental Status Exam Mental Status Exam Narrative: Pt is alert and oriented; behavior is cooperative, friendly and calm; patient is not in distress; dressed in casual attire with adequate hygiene and grooming; tattoo on his right cheek; mood is described as good and affect congruent, bright, calm; eye contact appropriate; Speech is normal rate, volume and prosody and not pressured; no psychomotor agitation/retardation present; thought process is organized and goal directed; Thought content is on tx; otherwise pertinent to relevant topics and without any delusional content, paranoid ideations or grandiosity; denies any SI/HI. Denies AVH and there is no evidence of perceptual disturbance. Patients insight and judgment fair. Diagnostics Vital Signs (24Hr): Vital Signs - 24 hr 01/16/25 21:48 01/17/25 09:07 Temperature 97.2 F 96.3 F L Pulse Rate 80 68 Respiratory Rate 16 Blood Pressure 114/63 110/64 Pulse Oximetry 93 99 Oxygen Delivery Method Room Air Room Air Labs 01/12/25 07:42 Medications Medications Current Medications Acetaminophen (Acetaminophen 325 Mg Tablet) 650 mg PO Q6H PRN PRN Reason: Headache/Pain, Scale 1-10 Last Admin: 01/16/25 21:09 Dose: 650 mg Al Hydroxide/Mg Hydroxide (Magnesium Hydrox/Alum Hydrox 30 Ml Oral.Susp) 30 ml PO Q6H PRN PRN Reason: Heartburn/Nausea Last Admin: 01/15/25 15:10 Dose: 30 ml Amphetamine/Dextroamphetamine (Dextroamphetamine/Amphetamine Xr 10 Mg Cap.Er.24h) 20 mg PO DAILY [facility] Last Admin: 01/17/25 09:00 Dose: 20 mg Amphetamine/Dextroamphetamine (Dextroamphetamine/Amphetamine Xr 10 Mg Cap.Er.24h) 10 mg PO DAILY@1400 [facility] Last Admin: 01/17/25 13:18 Dose: 10 mg Bisacodyl (Bisacodyl 10 Mg Supp.Rect) 10 mg [place] DAILY PRN PRN Reason: severe Constipation Buprenorphine HCl (Buprenorphine Hcl 8 Mg Tab.Subl) 24 mg SUBLINGUAL DAILY [facility] Last Admin: 01/17/25 08:15 Dose: 24 mg Bupropion HCl (Bupropion Hcl Xl 300 Mg Tab.Er.24h) 300 mg PO DAILY [facility] Last Admin: 01/17/25 08:15 Dose: 300 mg Docusate Sodium (Docusate Sodium 100 Mg Capsule) 100 mg PO BID [facility] Last Admin: 01/17/25 08:15 Dose: 100 mg Gabapentin (Gabapentin 400 Mg Capsule) 800 mg PO TID [facility] Last Admin: 01/17/25 08:15 Dose: 800 mg Hydroxyzine HCl (Hydroxyzine Hcl 25 Mg Tablet) 25 mg PO Q6H PRN PRN Reason: mild anxiety Lidocaine (Lidocaine 4 % Patch Adh..Patch) 1 patch TRANSDERMA DAILY [facility]; Protocol Last Admin: 01/16/25 09:23 Dose: Not Given Magnesium Hydroxide (Milk Of Magnesia 30 Ml Oral.Susp) 30 ml PO DAILY PRN PRN Reason: Constipation Last Admin: 01/15/25 16:58 Dose: 30 ml Nicotine (Nicotine 21 Mg Patch.Td24) 21 mg TRANSDERMA DAILY PRN PRN Reason: smoking cessation Nicotine Polacrilex (Nicotine Polacrilex 2 Mg Gum) 4 mg BUCCAL Q2H PRN PRN Reason: Nicotine Cravings Prazosin HCl (Prazosin Hcl 1 Mg Capsule) 2 mg PO BEDTIME [facility]; Protocol Last Admin: 01/16/25 21:50 Dose: Not Given Promethazine HCl (Promethazine Hcl 25 Mg Tablet) 25 mg PO Q8H PRN PRN Reason: Nausea and Vomiting Last Admin: 01/14/25 14:50 Dose: 25 mg Pseudoephedrine HCl (Pseudoephedrine Hcl 30 Mg Tablet) 30 mg PO Q6H PRN PRN Reason: Nasal Congestion Senna (Sennosides 8.6 Mg Tablet) 17.2 mg PO BEDTIME [facility] Last Admin: 01/16/25 20:30 Dose: 17.2 mg Sodium Chloride (Sodium Chloride 0.65 % Nasal 44 Ml Sprbtl) 1 spray NOSTRIL-B Q4H PRN PRN Reason: Congestion Last Admin: 01/16/25 21:09 Dose: 1 spray Tizanidine HCl (Tizanidine Hcl 4 Mg Tablet) 4 mg PO TID PRN PRN Reason: Muscle spasm Last Admin: 01/16/25 20:31 Dose: 4 mg Trazodone HCl (Trazodone Hcl 50 Mg Tablet) 50 mg PO BEDTIME MRX1 PRN PRN Reason: Insomnia Trazodone HCl (Trazodone Hcl 100 Mg Tablet) 100 mg PO BEDTIME [facility] Last Admin: 01/16/25 20:31 Dose: 100 mg Allergies Allergies Allergy/AdvReac Type Severity Reaction Status Date / Time ketorolac Allergy Hives Verified 01/11/25 13:27 olanzapine Allergy Shortness Verified 01/11/25 13:27 of Breath Assessment & Plan Assessment & Plan (1) MDD (major depressive disorder): Status: Acute Code(s): F32.9 - Major depressive disorder, single episode, unspecified (2) PTSD (post-traumatic stress disorder): Status: Acute Code(s): F43.10 - Post-traumatic stress disorder, unspecified (3) Hypogonadism in male: Status: Acute Code(s): E29.1 - Testicular hypofunction (4) Opioid use disorder, moderate, in sustained remission: Status: Acute Code(s): F11.21 - Opioid dependence, in remission Plan HPI: Patient is a 44-year-old with history of PTSD, remote substance abuse, ADHD, depression, low testosterone recently released from residential 4 days ago who presents for suicidal ideation in the face of off medication psychosocial stressors. Patient reports that he has significant exposure to traumatic situations for his time in the and ongoing PTSD symptoms. Patient used to struggle with alcohol and opiate/pain killer addiction but has been fully sober for the past 4 years. In residential, patient's mood was overall adequate on current medication regimen. This past week, suddenly without any warning he was released from residential. He was not given any refills on any of his prescriptions. Off medications, without any chance to prepare for his discharge, no place to live Patient was overwhelmed, and became emotionally dysregulated. Patient became suicidal and had planned to hang himself with his belt. However he looked in the mirror, saw the tattoo of his daughter's name on his face and knew that he would not do this. Instead presented to the hospital for help. Patient was gratefully restarted on medication in the emergency room and is now feeling much better. Formulation/clinical reasoning: Patient seems to have been relatively stable while in residential but depression anxiety researched when patient was suddenly released from residential without any plans or medications. Patient was restarted on meds in ED and is starting to feel better. Patient is trying to put together plan Hospital course: 01/15 patient doing well; reports good mood and is future oriented. No SI at all; team helping with dispo planning 01/16 doing well; continue tx plan; will try to get testosterone from outpt pharm 01/17 continue treatment plan; patient remained stable and working on dispo plans pt remain in good behavioral and impulse control. He is appropriate with peers and staff and engaged in treatment pt is stable on current medication regimen Plan: CV Q 15 minute checks Continue home medications: Wellbutrin XL 300 mg Trazodone 100 mg q.h.s. Gabapentin 800 mg t.i.d. Subutex 24 mg daily Vyvanse/Adderall Androgen gel (not on formulary) Patient educated on: diagnosis, medication risk/benefits and substance abuse Informed Consent: understands Reason for continued inpatient stay Substantial Risk for: stable for discharge Time Spent With Patient Time: Total time managing care of this patient today ____ minutes.
[2025-01-17 20:00] VITALS: BP 159/76; PULSE 102; RESP 16; TEMP 37; O2SAT 95
[2025-01-17] MEDS: Milk of Magnesia 30 ML ORAL.SUSP PO (22:31)
[2025-01-18 08:00] VITALS: BP 154/67; PULSE 73; TEMP 36.4; O2SAT 96
[2025-01-18] MEDS: Dextroamphetamine/Amphetamine XR 10 MG CAP.ER.24H 20 MG PO (08:33)
[2025-01-18] MEDS: buPROPion HCl XL 300 MG TAB.ER.24H PO (08:34)
--- NOTE | 2025-01-18 09:50 | HO.PSYCHPN ---
Subjective Subjective Date of Service: 01/18/25 Reason For Visit: decompensation Interim History: met with patient; discussed with team pt remains doing well, good mood; no depression. Pt hopefully found place to live. Discussed Androgen gel and he says he takes 1.62% two pumps daily. Mental Status Exam Mental Status Exam Narrative: Pt is alert and oriented; behavior is cooperative, friendly and calm; patient is not in distress; dressed in casual attire with adequate hygiene and grooming; tattoo on his right cheek; mood is described as good and affect congruent, bright, calm; eye contact appropriate; Speech is normal rate, volume and prosody and not pressured; no psychomotor agitation/retardation present; thought process is organized and goal directed; Thought content is on tx; otherwise pertinent to relevant topics and without any delusional content, paranoid ideations or grandiosity; denies any SI/HI. Denies AVH and there is no evidence of perceptual disturbance. Patients insight and judgment fair. Diagnostics Vital Signs (24Hr): Vital Signs - 24 hr 01/17/25 20:00 01/18/25 08:00 Temperature 98.6 F 97.6 F Pulse Rate 102 H 73 Respiratory Rate 16 Blood Pressure 159/76 H 154/67 H Pulse Oximetry 95 96 Oxygen Delivery Method Room Air Room Air Labs 01/12/25 07:42 Medications Medications Current Medications Acetaminophen (Acetaminophen 325 Mg Tablet) 650 mg PO Q6H PRN PRN Reason: Headache/Pain, Scale 1-10 Last Admin: 01/16/25 21:09 Dose: 650 mg Al Hydroxide/Mg Hydroxide (Magnesium Hydrox/Alum Hydrox 30 Ml Oral.Susp) 30 ml PO Q6H PRN PRN Reason: Heartburn/Nausea Last Admin: 01/15/25 15:10 Dose: 30 ml Amphetamine/Dextroamphetamine (Dextroamphetamine/Amphetamine Xr 10 Mg Cap.Er.24h) 20 mg PO DAILY [facility] Last Admin: 01/18/25 08:33 Dose: 20 mg Amphetamine/Dextroamphetamine (Dextroamphetamine/Amphetamine Xr 10 Mg Cap.Er.24h) 10 mg PO DAILY@1400 [facility] Last Admin: 01/17/25 13:18 Dose: 10 mg Bisacodyl (Bisacodyl 10 Mg Supp.Rect) 10 mg [place] DAILY PRN PRN Reason: severe Constipation Buprenorphine HCl (Buprenorphine Hcl 8 Mg Tab.Subl) 24 mg SUBLINGUAL DAILY [facility] Last Admin: 01/18/25 09:02 Dose: 24 mg Bupropion HCl (Bupropion Hcl Xl 300 Mg Tab.Er.24h) 300 mg PO DAILY [facility] Last Admin: 01/18/25 08:34 Dose: 300 mg Docusate Sodium (Docusate Sodium 100 Mg Capsule) 100 mg PO BID [facility] Last Admin: 01/18/25 08:47 Dose: Not Given Gabapentin (Gabapentin 400 Mg Capsule) 800 mg PO TID [facility] Last Admin: 01/18/25 08:33 Dose: 800 mg Hydroxyzine HCl (Hydroxyzine Hcl 25 Mg Tablet) 25 mg PO Q6H PRN PRN Reason: mild anxiety Last Admin: 01/17/25 19:07 Dose: 25 mg Lidocaine (Lidocaine 4 % Patch Adh..Patch) 1 patch TRANSDERMA DAILY [facility]; Protocol Last Admin: 01/18/25 09:08 Dose: Not Given Magnesium Hydroxide (Milk Of Magnesia 30 Ml Oral.Susp) 30 ml PO DAILY PRN PRN Reason: Constipation Last Admin: 01/17/25 22:31 Dose: 30 ml Nicotine (Nicotine 21 Mg Patch.Td24) 21 mg TRANSDERMA DAILY PRN PRN Reason: smoking cessation Nicotine Polacrilex (Nicotine Polacrilex 2 Mg Gum) 4 mg BUCCAL Q2H PRN PRN Reason: Nicotine Cravings Prazosin HCl (Prazosin Hcl 1 Mg Capsule) 2 mg PO BEDTIME [facility]; Protocol Last Admin: 01/17/25 22:25 Dose: Not Given Promethazine HCl (Promethazine Hcl 25 Mg Tablet) 25 mg PO Q8H PRN PRN Reason: Nausea and Vomiting Last Admin: 01/14/25 14:50 Dose: 25 mg Pseudoephedrine HCl (Pseudoephedrine Hcl 30 Mg Tablet) 30 mg PO Q6H PRN PRN Reason: Nasal Congestion Senna (Sennosides 8.6 Mg Tablet) 17.2 mg PO BEDTIME [facility] Last Admin: 01/17/25 22:27 Dose: 17.2 mg Sodium Chloride (Sodium Chloride 0.65 % Nasal 44 Ml Sprbtl) 1 spray NOSTRIL-B Q4H PRN PRN Reason: Congestion Last Admin: 01/16/25 21:09 Dose: 1 spray Tizanidine HCl (Tizanidine Hcl 4 Mg Tablet) 4 mg PO TID PRN PRN Reason: Muscle spasm Last Admin: 01/17/25 22:26 Dose: 4 mg Trazodone HCl (Trazodone Hcl 50 Mg Tablet) 50 mg PO BEDTIME MRX1 PRN PRN Reason: Insomnia Trazodone HCl (Trazodone Hcl 100 Mg Tablet) 100 mg PO BEDTIME [facility] Last Admin: 01/17/25 22:30 Dose: 100 mg Allergies Allergies Allergy/AdvReac Type Severity Reaction Status Date / Time ketorolac Allergy Hives Verified 01/11/25 13:27 olanzapine Allergy Shortness Verified 01/11/25 13:27 of Breath Assessment & Plan Assessment & Plan (1) MDD (major depressive disorder): Status: Acute Code(s): F32.9 - Major depressive disorder, single episode, unspecified (2) PTSD (post-traumatic stress disorder): Status: Acute Code(s): F43.10 - Post-traumatic stress disorder, unspecified (3) Hypogonadism in male: Status: Acute Code(s): E29.1 - Testicular hypofunction (4) Opioid use disorder, moderate, in sustained remission: Status: Acute Code(s): F11.21 - Opioid dependence, in remission Plan HPI: Patient is a 44-year-old with history of PTSD, remote substance abuse, ADHD, depression, low testosterone recently released from residential 4 days ago who presents for suicidal ideation in the face of off medication psychosocial stressors. Patient reports that he has significant exposure to traumatic situations for his time in the and ongoing PTSD symptoms. Patient used to struggle with alcohol and opiate/pain killer addiction but has been fully sober for the past 4 years. In residential, patient's mood was overall adequate on current medication regimen. This past week, suddenly without any warning he was released from residential. He was not given any refills on any of his prescriptions. Off medications, without any chance to prepare for his discharge, no place to live Patient was overwhelmed, and became emotionally dysregulated. Patient became suicidal and had planned to hang himself with his belt. However he looked in the mirror, saw the tattoo of his daughter's name on his face and knew that he would not do this. Instead presented to the hospital for help. Patient was gratefully restarted on medication in the emergency room and is now feeling much better. Formulation/clinical reasoning: Patient seems to have been relatively stable while in residential but depression anxiety researched when patient was suddenly released from residential without any plans or medications. Patient was restarted on meds in ED and is starting to feel better. Patient is trying to put together plan Hospital course: 01/15 patient doing well; reports good mood and is future oriented. No SI at all; team helping with dispo planning 01/16 doing well; continue tx plan; will try to get testosterone from outpt pharm 01/17 continue treatment plan; patient remained stable and working on dispo plans 01/18 pt remains doing well, good mood; no depression. Pt hopefully found place to live. Discussed Androgen gel and he says he takes 1.62% two pumps daily. pt remain in good behavioral and impulse control. He is appropriate with peers and staff and engaged in treatment pt is stable on current medication regimen Plan: CV Q 15 minute checks Continue home medications: continue Androgen gel 1.62% daily; one pump worth per shoulder/underarm Wellbutrin XL 300 mg Trazodone 100 mg q.h.s. Gabapentin 800 mg t.i.d. Subutex 24 mg daily Vyvanse/Adderall Androgen gel (not on formulary) Patient educated on: diagnosis, medication risk/benefits and therapeutic strategies Informed Consent: understands Reason for continued inpatient stay Substantial Risk for: stable for discharge Time Spent With Patient Time: Total time managing care of this patient today ____ minutes.
[2025-01-18] MEDS: Sodium Chloride 0.65 % Nasal 44 ML SPRBTL 1 SPRAY NOSTRIL-B ×2 (09:57→13:41)
[2025-01-18] MEDS: Dextroamphetamine/Amphetamine XR 10 MG CAP.ER.24H PO (13:41)
--- NOTE | 2025-01-18 16:05 | P.PNIM_ITS ---
Subjective Subjective Date of Service: 01/18/25 Interval History: Patient reports that he developed gum pain, tenderness to left-sided cheek. On exam patient has slight swelling to cheek left side of nose. Tender to touch. Gum is red and inflamed. Has several carious and missing and broken teeth. No lymphadenopathy, no fever or chills. Denies any other symptoms. Review of Systems Denies shortness of breath, dizziness, abdominal pain headaches or any other concerning symptoms. Physical Exam 2 Exam: Exam: Alert and oriented X3, calm and cooperative Neuro: CN II-X11 intact, no deficits, visual acuity intact Mouth: Tenderness to left upper jaw, slight swelling lateral to nose. Gumline red and edematous. No drainage Cardiac: S1 S2 RRR, No ectopy Pulmonary: lungs clear to auscultation, No increased WOB. MSK: Ambulating at baseline : Deferred Psych: Mood stable, Quiet and cooperative. Skin: Warm and dry, Intact Vital Signs: Vital Signs: Last Vital Signs Temp 97.6 F 01/18/25 08:00 Pulse 73 01/18/25 08:00 Resp 16 01/17/25 20:00 BP 154/67 H 01/18/25 08:00 Pulse Ox 96 01/18/25 08:00 O2 Del Method Room Air 01/18/25 08:00 Objective Data Active Medications Acetaminophen (Acetaminophen 325 Mg Tablet) 650 mg PO Q6H PRN PRN Reason: Headache/Pain, Scale 1-10 Last Admin: 01/18/25 13:40 Dose: 650 mg Documented By: JON Al Hydroxide/Mg Hydroxide (Magnesium Hydrox/Alum Hydrox 30 Ml Oral.Susp) 30 ml PO Q6H PRN PRN Reason: Heartburn/Nausea Last Admin: 01/15/25 15:10 Dose: 30 ml Documented By: SUSHANT Amphetamine/Dextroamphetamine (Dextroamphetamine/Amphetamine Xr 10 Mg Cap.Er.24h) 20 mg PO DAILY [facility] Last Admin: 01/18/25 08:33 Dose: 20 mg Documented By: JON Amphetamine/Dextroamphetamine (Dextroamphetamine/Amphetamine Xr 10 Mg Cap.Er.24h) 10 mg PO DAILY@1400 [facility] Last Admin: 01/18/25 13:41 Dose: 10 mg Documented By: JON Bisacodyl (Bisacodyl 10 Mg Supp.Rect) 10 mg MT DAILY PRN PRN Reason: severe Constipation Buprenorphine HCl (Buprenorphine Hcl 8 Mg Tab.Subl) 24 mg SUBLINGUAL DAILY [facility] Last Admin: 01/18/25 09:02 Dose: 24 mg Documented By: JON Bupropion HCl (Bupropion Hcl Xl 300 Mg Tab.Er.24h) 300 mg PO DAILY [facility] Last Admin: 01/18/25 08:34 Dose: 300 mg Documented By: JON Docusate Sodium (Docusate Sodium 100 Mg Capsule) 100 mg PO BID [facility] Last Admin: 01/18/25 08:47 Dose: Not Given Documented By: JON Non-Admin Reason: Patient Refused Gabapentin (Gabapentin 400 Mg Capsule) 800 mg PO TID [facility] Last Admin: 01/18/25 14:43 Dose: 800 mg Documented By: JON Hydroxyzine HCl (Hydroxyzine Hcl 25 Mg Tablet) 25 mg PO Q6H PRN PRN Reason: mild anxiety Last Admin: 01/17/25 19:07 Dose: 25 mg Documented By: SUSHANT Lidocaine (Lidocaine 4 % Patch Adh..Patch) 1 patch TRANSDERMA DAILY [facility]; Protocol Last Admin: 01/18/25 09:08 Dose: Not Given Documented By: JON Non-Admin Reason: Patient Refused Magnesium Hydroxide (Milk Of Magnesia 30 Ml Oral.Susp) 30 ml PO DAILY PRN PRN Reason: Constipation Last Admin: 01/17/25 22:31 Dose: 30 ml Documented By: ADRIANO Nicotine (Nicotine 21 Mg Patch.Td24) 21 mg TRANSDERMA DAILY PRN PRN Reason: smoking cessation Nicotine Polacrilex (Nicotine Polacrilex 2 Mg Gum) 4 mg BUCCAL Q2H PRN PRN Reason: Nicotine Cravings Non-Formulary Medication (Patient Own Medication) 2 each TOPICAL DAILY [facility] Prazosin HCl (Prazosin Hcl 1 Mg Capsule) 2 mg PO BEDTIME [facility]; Protocol Last Admin: 01/17/25 22:25 Dose: Not Given Documented By: ADRIANO Non-Admin Reason: Patient Refused Promethazine HCl (Promethazine Hcl 25 Mg Tablet) 25 mg PO Q8H PRN PRN Reason: Nausea and Vomiting Last Admin: 01/14/25 14:50 Dose: 25 mg Documented By: SUSHANT Pseudoephedrine HCl (Pseudoephedrine Hcl 30 Mg Tablet) 30 mg PO Q6H PRN PRN Reason: Nasal Congestion Senna (Sennosides 8.6 Mg Tablet) 17.2 mg PO BEDTIME [facility] Last Admin: 01/17/25 22:27 Dose: 17.2 mg Documented By: ADRIANO Sodium Chloride (Sodium Chloride 0.65 % Nasal 44 Ml Sprbtl) 1 spray NOSTRIL-B Q4H PRN PRN Reason: Congestion Last Admin: 01/18/25 13:41 Dose: 1 spray Documented By: JON Tizanidine HCl (Tizanidine Hcl 4 Mg Tablet) 4 mg PO TID PRN PRN Reason: Muscle spasm Last Admin: 01/17/25 22:26 Dose: 4 mg Documented By: ADRIANO Trazodone HCl (Trazodone Hcl 50 Mg Tablet) 50 mg PO BEDTIME MRX1 PRN PRN Reason: Insomnia Trazodone HCl (Trazodone Hcl 100 Mg Tablet) 100 mg PO BEDTIME [facility] Last Admin: 01/17/25 22:30 Dose: 100 mg Documented By: ADRIANO Labs 01/12/25 07:42 Assessment and Plan (1) Dental abscess: Status: Acute Plan 44-year-old male with a past medical history listed below, admitted to inpatient psych for increased depression and suicidal ideation. Admitted for stabilization. Polysubstance use/major depressive disorder/ADHD/PTSD/generalized anxiety disorder Treatment per psychiatric team On buprenorphine Left tooth abscess Upper left canine tooth carious and fractured Redness to gumline tenderness and slight swelling of cheek Augmentin 875 b.i.d. for 10 days Hypogonadism Testosterone levels pending Continue AndroGel 16.2 mg packets 2 packets daily. Diagnosed in 2018. Right shoulder pain Treat with tizanidine and Tylenol as needed Chronic low back pain Patient takes gabapentin 800 mg 3 times daily Lidoderm patch daily Thank you for allowing me to participate in the care of this patient. Will follow with you, please notify medical provider with any changes in condition or concerns. Quality Stroke Does the patient have a stroke diagnosis?: No VTE Prior VTE?: No VTE Risk Level:: Medical - low VTE Device Contraindication: Treatment Not Indicated VTE Drug Contraindication: Treatment Not Indicated
[2025-01-18 19:51] VITALS: BP 115/62; PULSE 106; RESP 16; TEMP 36.1; O2SAT 95
[2025-01-19 08:00] VITALS: BP 136/75; PULSE 64; TEMP 36.4; O2SAT 99
[2025-01-19] MEDS: buPROPion HCl XL 300 MG TAB.ER.24H PO (08:38)
[2025-01-19] MEDS: Dextroamphetamine/Amphetamine XR 10 MG CAP.ER.24H 20 MG PO (08:38)
--- NOTE | 2025-01-19 09:48 | HO.PSYCHPN ---
Subjective Subjective Date of Service: 01/19/25 Reason For Visit: decompensation Interim History: met with patient; discussed with team Remains doing well; good mood, grateful that he got accepted into a [facility]. Discussed androgen gel which needs a prior authorization. Thankful for help received Mental Status Exam Mental Status Exam Narrative: Pt is alert and oriented; behavior is cooperative, friendly and calm; patient is not in distress; dressed in casual attire with adequate hygiene and grooming; tattoo on his right cheek; mood is described as good and affect congruent, bright, calm; eye contact appropriate; Speech is normal rate, volume and prosody and not pressured; no psychomotor agitation/retardation present; thought process is organized and goal directed; Thought content is on tx; otherwise pertinent to relevant topics and without any delusional content, paranoid ideations or grandiosity; denies any SI/HI. Denies AVH and there is no evidence of perceptual disturbance. Patients insight and judgment fair. Diagnostics Vital Signs (24Hr): Vital Signs - 24 hr 01/18/25 19:51 01/19/25 08:00 Temperature 97.0 F 97.5 F Pulse Rate 106 H 64 Respiratory Rate 16 Blood Pressure 115/62 136/75 Pulse Oximetry 95 99 Oxygen Delivery Method Room Air Room Air Labs 01/12/25 07:42 Medications Medications Current Medications Acetaminophen (Acetaminophen 325 Mg Tablet) 650 mg PO Q6H PRN PRN Reason: Headache/Pain, Scale 1-10 Last Admin: 01/19/25 09:06 Dose: 650 mg Al Hydroxide/Mg Hydroxide (Magnesium Hydrox/Alum Hydrox 30 Ml Oral.Susp) 30 ml PO Q6H PRN PRN Reason: Heartburn/Nausea Last Admin: 01/15/25 15:10 Dose: 30 ml Amoxicillin/Clavulanate Potassium (Amoxicillin/Potassium Clav 875 Mg Tablet) 875 mg PO Q12H [facility] Stop: 01/28/25 08:01 Last Admin: 01/19/25 08:38 Dose: 875 mg Amphetamine/Dextroamphetamine (Dextroamphetamine/Amphetamine Xr 10 Mg Cap.Er.24h) 20 mg PO DAILY [facility] Last Admin: 01/19/25 08:38 Dose: 20 mg Amphetamine/Dextroamphetamine (Dextroamphetamine/Amphetamine Xr 10 Mg Cap.Er.24h) 10 mg PO DAILY@1400 [facility] Last Admin: 01/18/25 13:41 Dose: 10 mg Bisacodyl (Bisacodyl 10 Mg Supp.Rect) 10 mg MS DAILY PRN PRN Reason: severe Constipation Buprenorphine HCl (Buprenorphine Hcl 8 Mg Tab.Subl) 24 mg SUBLINGUAL DAILY [facility] Last Admin: 01/19/25 08:38 Dose: 24 mg Bupropion HCl (Bupropion Hcl Xl 300 Mg Tab.Er.24h) 300 mg PO DAILY [facility] Last Admin: 01/19/25 08:38 Dose: 300 mg Docusate Sodium (Docusate Sodium 100 Mg Capsule) 100 mg PO BID [facility] Last Admin: 01/19/25 08:41 Dose: Not Given Gabapentin (Gabapentin 400 Mg Capsule) 800 mg PO TID [facility] Last Admin: 01/19/25 08:38 Dose: 800 mg Hydroxyzine HCl (Hydroxyzine Hcl 25 Mg Tablet) 25 mg PO Q6H PRN PRN Reason: mild anxiety Last Admin: 01/18/25 20:17 Dose: 25 mg Lidocaine (Lidocaine 4 % Patch Adh..Patch) 1 patch TRANSDERMA DAILY [facility]; Protocol Last Admin: 01/19/25 08:41 Dose: Not Given Magnesium Hydroxide (Milk Of Magnesia 30 Ml Oral.Susp) 30 ml PO DAILY PRN PRN Reason: Constipation Last Admin: 01/17/25 22:31 Dose: 30 ml Nicotine (Nicotine 21 Mg Patch.Td24) 21 mg TRANSDERMA DAILY PRN PRN Reason: smoking cessation Nicotine Polacrilex (Nicotine Polacrilex 2 Mg Gum) 4 mg BUCCAL Q2H PRN PRN Reason: Nicotine Cravings Non-Formulary Medication (Patient Own Medication) 2 each TOPICAL DAILY [facility] Prazosin HCl (Prazosin Hcl 1 Mg Capsule) 2 mg PO BEDTIME [facility]; Protocol Last Admin: 01/18/25 20:28 Dose: Not Given Promethazine HCl (Promethazine Hcl 25 Mg Tablet) 25 mg PO Q8H PRN PRN Reason: Nausea and Vomiting Last Admin: 01/14/25 14:50 Dose: 25 mg Pseudoephedrine HCl (Pseudoephedrine Hcl 30 Mg Tablet) 30 mg PO Q6H PRN PRN Reason: Nasal Congestion Senna (Sennosides 8.6 Mg Tablet) 17.2 mg PO BEDTIME [facility] Last Admin: 01/18/25 20:17 Dose: 17.2 mg Sodium Chloride (Sodium Chloride 0.65 % Nasal 44 Ml Sprbtl) 1 spray NOSTRIL-B Q4H PRN PRN Reason: Congestion Last Admin: 01/18/25 13:41 Dose: 1 spray Tizanidine HCl (Tizanidine Hcl 4 Mg Tablet) 4 mg PO TID PRN PRN Reason: Muscle spasm Last Admin: 01/18/25 18:01 Dose: 4 mg Trazodone HCl (Trazodone Hcl 50 Mg Tablet) 50 mg PO BEDTIME MRX1 PRN PRN Reason: Insomnia Trazodone HCl (Trazodone Hcl 100 Mg Tablet) 100 mg PO BEDTIME [facility] Last Admin: 01/18/25 20:18 Dose: 100 mg Allergies Allergies Allergy/AdvReac Type Severity Reaction Status Date / Time ketorolac Allergy Hives Verified 01/11/25 13:27 olanzapine Allergy Shortness Verified 01/11/25 13:27 of Breath Assessment & Plan Assessment & Plan (1) MDD (major depressive disorder): Status: Acute Code(s): F32.9 - Major depressive disorder, single episode, unspecified (2) PTSD (post-traumatic stress disorder): Status: Acute Code(s): F43.10 - Post-traumatic stress disorder, unspecified (3) Hypogonadism in male: Status: Acute Code(s): E29.1 - Testicular hypofunction (4) Opioid use disorder, moderate, in sustained remission: Status: Acute Code(s): F11.21 - Opioid dependence, in remission Plan HPI: Patient is a 44-year-old with history of PTSD, remote substance abuse, ADHD, depression, low testosterone recently [facility] from [facility] ago who presents for suicidal ideation in the face of off medication psychosocial stressors. Patient reports that he has significant exposure to traumatic situations for his time in the and ongoing PTSD symptoms. Patient used to struggle with alcohol and opiate/pain killer addiction but has been fully sober for the past 4 years. In [facility], patient's mood was overall adequate on current medication regimen. This past week, suddenly without any warning he was released from [facility]. He was not given any refills on any of his prescriptions. Off medications, without any chance to prepare for his discharge, no place to live Patient was overwhelmed, and became emotionally dysregulated. Patient became suicidal and had planned to hang himself with his belt. However he looked in the mirror, saw the tattoo of his daughter's name on his face and knew that he would not do this. Instead presented to the hospital for help. Patient was gratefully restarted on medication in the emergency room and is now feeling much better. Formulation/clinical reasoning: Patient seems to have been relatively stable while in [facility] but depression anxiety researched when patient was suddenly released from [facility] without any plans or medications. Patient was restarted on meds in ED and is starting to feel better. Patient is trying to put together plan Hospital course: 01/15 patient doing well; reports good mood and is future oriented. No SI at all; team helping with dispo planning 01/16 doing well; continue tx plan; will try to get testosterone from outpt pharm 01/17 continue treatment plan; patient remained stable and working on dispo plans 01/18 pt remains doing well, good mood; no depression. Pt hopefully found place to live. Discussed Androgen gel and he says he takes 1.62% two pumps daily. 1024 patient is stable continue treatment plan; pt remain in good behavioral and impulse control. He is appropriate with peers and staff and engaged in treatment pt is stable on current medication regimen Plan: CV Q 15 minute checks Continue home medications: continue Androgen gel 1.62% daily; one pump worth per shoulder/underarm Wellbutrin XL 300 mg Trazodone 100 mg q.h.s. Gabapentin 800 mg t.i.d. Subutex 24 mg daily Vyvanse/Adderall Androgen gel (not on formulary) Patient educated on: diagnosis, medication risk/benefits, therapeutic strategies and medical condition Informed Consent: understands Reason for continued inpatient stay Substantial Risk for: stable for discharge Time Spent With Patient Time: Total time managing care of this patient today ____ minutes.
[2025-01-19] MEDS: Magnesium Hydrox/Alum Hydrox 30 ML ORAL.SUSP PO (10:56)
[2025-01-19] MEDS: Dextroamphetamine/Amphetamine XR 10 MG CAP.ER.24H PO (13:16)
[2025-01-19 14:48] LABS: Testosterone, Free 38.4 pg/mL (35.0-155.0)
[2025-01-19 20:00] VITALS: BP 121/83; PULSE 74; RESP 16; TEMP 36.2; O2SAT 95
[2025-01-20 08:00] VITALS: BP 107/74; PULSE 73; RESP 18; TEMP 36.6; O2SAT 96
[2025-01-20] MEDS: Dextroamphetamine/Amphetamine XR 10 MG CAP.ER.24H 20 MG PO (08:26)
[2025-01-20] MEDS: buPROPion HCl XL 300 MG TAB.ER.24H PO (08:26)
--- NOTE | 2025-01-20 09:45 | HO.PSYCHPN ---
Subjective Subjective Date of Service: 01/20/25 Reason For Visit: decompensation Interim History: met with patient; discussed with team He feels aggravated just now. Can you give me something? . Found out his moved to [place] with his child. Overall improved since admission. Denies SI/HI/AVH. Review of Systems Review of Systems Denies shortness of breath, dizziness, abdominal pain headaches or any other concerning symptoms. Mental Status Exam Mental Status Exam Narrative: Pt is alert and oriented; behavior is cooperative, friendly and calm; patient is not in distress; dressed in casual attire with adequate hygiene and grooming; tattoo on his right cheek; mood is described as good and affect congruent, bright, calm; eye contact appropriate; Speech is normal rate, volume and prosody and not pressured; no psychomotor agitation/retardation present; thought process is organized and goal directed; Thought content is on tx; otherwise pertinent to relevant topics and without any delusional content, paranoid ideations or grandiosity; denies any SI/HI. Denies AVH and there is no evidence of perceptual disturbance. Patients insight and judgment fair. Diagnostics Vital Signs (24Hr): Vital Signs - 24 hr 01/19/25 20:00 01/20/25 08:00 Temperature 97.1 F 97.8 F Pulse Rate 74 73 Respiratory Rate 16 18 Blood Pressure 121/83 107/74 Pulse Oximetry 95 96 Oxygen Delivery Method Room Air Room Air Labs 01/12/25 07:42 Labs: Laboratory Results - last 48 hr 01/12/25 07:42 Total Testosterone 317 Fr Testosterone Dialys 38.4 Medications Medications Current Medications Acetaminophen (Acetaminophen 325 Mg Tablet) 650 mg PO Q6H PRN PRN Reason: Headache/Pain, Scale 1-10 Last Admin: 01/19/25 09:06 Dose: 650 mg Al Hydroxide/Mg Hydroxide (Magnesium Hydrox/Alum Hydrox 30 Ml Oral.Susp) 30 ml PO Q6H PRN PRN Reason: Heartburn/Nausea Last Admin: 01/19/25 10:56 Dose: 30 ml Amoxicillin/Clavulanate Potassium (Amoxicillin/Potassium Clav 875 Mg Tablet) 875 mg PO Q12H [facility] Stop: 01/28/25 08:01 Last Admin: 01/20/25 08:26 Dose: 875 mg Amphetamine/Dextroamphetamine (Dextroamphetamine/Amphetamine Xr 10 Mg Cap.Er.24h) 20 mg PO DAILY [facility] Last Admin: 01/20/25 08:26 Dose: 20 mg Amphetamine/Dextroamphetamine (Dextroamphetamine/Amphetamine Xr 10 Mg Cap.Er.24h) 10 mg PO DAILY@1400 [facility] Last Admin: 01/19/25 13:16 Dose: 10 mg Bisacodyl (Bisacodyl 10 Mg Supp.Rect) 10 mg GA DAILY PRN PRN Reason: severe Constipation Buprenorphine HCl (Buprenorphine Hcl 8 Mg Tab.Subl) 24 mg SUBLINGUAL DAILY [facility] Last Admin: 01/20/25 08:49 Dose: 24 mg Bupropion HCl (Bupropion Hcl Xl 300 Mg Tab.Er.24h) 300 mg PO DAILY [facility] Last Admin: 01/20/25 08:26 Dose: 300 mg Docusate Sodium (Docusate Sodium 100 Mg Capsule) 100 mg PO BID [facility] Last Admin: 01/20/25 08:26 Dose: 100 mg Gabapentin (Gabapentin 400 Mg Capsule) 800 mg PO TID [facility] Last Admin: 01/20/25 08:26 Dose: 800 mg Hydroxyzine HCl (Hydroxyzine Hcl 25 Mg Tablet) 25 mg PO Q6H PRN PRN Reason: mild anxiety Last Admin: 01/19/25 20:28 Dose: 25 mg Lidocaine (Lidocaine 4 % Patch Adh..Patch) 1 patch TRANSDERMA DAILY [facility]; Protocol Last Admin: 01/20/25 08:32 Dose: Not Given Magnesium Hydroxide (Milk Of Magnesia 30 Ml Oral.Susp) 30 ml PO DAILY PRN PRN Reason: Constipation Last Admin: 01/17/25 22:31 Dose: 30 ml Nicotine (Nicotine 21 Mg Patch.Td24) 21 mg TRANSDERMA DAILY PRN PRN Reason: smoking cessation Nicotine Polacrilex (Nicotine Polacrilex 2 Mg Gum) 4 mg BUCCAL Q2H PRN PRN Reason: Nicotine Cravings Pt Own (Androgel 1. (47)) 2 each TOPICAL DAILY [facility] Prazosin HCl (Prazosin Hcl 1 Mg Capsule) 2 mg PO BEDTIME [facility]; Protocol Last Admin: 01/19/25 20:37 Dose: Not Given Promethazine HCl (Promethazine Hcl 25 Mg Tablet) 25 mg PO Q8H PRN PRN Reason: Nausea and Vomiting Last Admin: 01/19/25 20:38 Dose: 25 mg Pseudoephedrine HCl (Pseudoephedrine Hcl 30 Mg Tablet) 30 mg PO Q6H PRN PRN Reason: Nasal Congestion Senna (Sennosides 8.6 Mg Tablet) 17.2 mg PO BEDTIME [facility] Last Admin: 01/19/25 20:29 Dose: 17.2 mg Sodium Chloride (Sodium Chloride 0.65 % Nasal 44 Ml Sprbtl) 1 spray NOSTRIL-B Q4H PRN PRN Reason: Congestion Last Admin: 01/18/25 13:41 Dose: 1 spray Tizanidine HCl (Tizanidine Hcl 4 Mg Tablet) 4 mg PO TID PRN PRN Reason: Muscle spasm Last Admin: 01/19/25 20:38 Dose: 4 mg Trazodone HCl (Trazodone Hcl 50 Mg Tablet) 50 mg PO BEDTIME MRX1 PRN PRN Reason: Insomnia Trazodone HCl (Trazodone Hcl 100 Mg Tablet) 100 mg PO BEDTIME [facility] Last Admin: 01/19/25 20:29 Dose: 100 mg Allergies Allergies Allergy/AdvReac Type Severity Reaction Status Date / Time ketorolac Allergy Hives Verified 01/11/25 13:27 olanzapine Allergy Shortness Verified 01/11/25 13:27 of Breath Assessment & Plan Assessment & Plan (1) MDD (major depressive disorder): Status: Acute Code(s): F32.9 - Major depressive disorder, single episode, unspecified (2) PTSD (post-traumatic stress disorder): Status: Acute Code(s): F43.10 - Post-traumatic stress disorder, unspecified (3) Hypogonadism in male: Status: Acute Code(s): E29.1 - Testicular hypofunction (4) Opioid use disorder, moderate, in sustained remission: Status: Acute Code(s): F11.21 - Opioid dependence, in remission Plan HPI: Patient is a 44-year-old with history of PTSD, remote substance abuse, ADHD, depression, low testosterone recently [facility] from [facility] who presents for suicidal ideation in the face of off medication psychosocial stressors. Patient reports that he has significant exposure to traumatic situations for his time in the and ongoing PTSD symptoms. Patient used to struggle with alcohol and opiate/pain killer addiction but has been fully sober for the past 4 years. In [facility], patient's mood was overall adequate on current medication regimen. This past week, suddenly without any warning he was released from [facility]. He was not given any refills on any of his prescriptions. Off medications, without any chance to prepare for his discharge, no place to live Patient was overwhelmed, and became emotionally dysregulated. Patient became suicidal and had planned to hang himself with his belt. However he looked in the mirror, saw the tattoo of his daughter's name on his face and knew that he would not do this. Instead presented to the hospital for help. Patient was gratefully restarted on medication in the emergency room and is now feeling much better. Formulation/clinical reasoning: Patient seems to have been relatively stable while in [facility] but depression anxiety researched when patient was suddenly released from [facility] without any plans or medications. Patient was restarted on meds in ED and is starting to feel better. Patient is trying to put together plan Hospital course: 01/15 patient doing well; reports good mood and is future oriented. No SI at all; team helping with dispo planning 01/16 doing well; continue tx plan; will try to get testosterone from outpt pharm 01/17 continue treatment plan; patient remained stable and working on dispo plans 01/18 pt remains doing well, good mood; no depression. Pt hopefully found place to live. Discussed Androgen gel and he says he takes 1.62% two pumps daily. 1024 patient is stable continue treatment plan. pt remain in good behavioral and impulse control. He is appropriate with peers and staff and engaged in treatment pt is stable on current medication regimen 01/20: continue current management and treatment plan. Plan: CV Q 15 minute checks Continue home medications: continue Androgen gel 1.62% daily; one pump worth per shoulder/underarm Wellbutrin XL 300 mg Trazodone 100 mg q.h.s. Gabapentin 800 mg t.i.d. Subutex 24 mg daily Vyvanse/Adderall Androgen gel (not on formulary) Reason for continued inpatient stay Substantial Risk for: harm to self, inability to function and rapid decompensation Time Spent With Patient Time: Total time managing care of this patient today ____ minutes.
[2025-01-20] MEDS: Milk of Magnesia 30 ML ORAL.SUSP PO (12:18)
[2025-01-20] MEDS: Dextroamphetamine/Amphetamine XR 10 MG CAP.ER.24H PO (13:31)
[2025-01-20 20:00] VITALS: BP 128/65; PULSE 68; RESP 15; TEMP 36.2; O2SAT 97
[2025-01-20] MEDS: Lidocaine 4 % Patch ADH..PATCH 1 PATCH TRANSDERMA (20:17)
[2025-01-21 09:00] VITALS: BP 131/84; PULSE 69; RESP 18; TEMP 36.4; O2SAT 100
[2025-01-21] MEDS: Dextroamphetamine/Amphetamine XR 10 MG CAP.ER.24H 20 MG PO (09:07)
[2025-01-21] MEDS: buPROPion HCl XL 300 MG TAB.ER.24H PO (09:08)
--- NOTE | 2025-01-21 09:33 | P.PNPSI_ITS ---
Subjective Subjective Date of Service: 01/21/25 Reason For Visit: decompensation Interim History: met with patient; discussed with team Patient remains in good control. He is pleasant and cooperative. Uses coloring as a coping strategy. He refused Prazosin last night because he says it lowers his BP. Slept well and says he slept in today. Improved since admission. Denies SI/HI/AVH. Review of Systems Review of Systems Denies shortness of breath, dizziness, abdominal pain headaches or any other concerning symptoms. Mental Status Exam Mental Status Exam Narrative: Pt is alert and oriented; behavior is cooperative, friendly and calm; patient is not in distress; dressed in casual attire with adequate hygiene and grooming; tattoo on his right cheek; mood is described as good and affect congruent, bright, calm; eye contact appropriate; Speech is normal rate, volume and prosody and not pressured; no psychomotor agitation/retardation present; thought process is organized and goal directed; Thought content is on tx; otherwise pertinent to relevant topics and without any delusional content, paranoid ideations or grandiosity; denies any SI/HI. Denies AVH and there is no evidence of perceptual disturbance. Patients insight and judgment fair. Diagnostics Vital Signs (24Hr): Vital Signs - 24 hr 01/20/25 20:00 01/21/25 09:00 Temperature 97.2 F 97.6 F Pulse Rate 68 69 Respiratory Rate 15 18 Blood Pressure 128/65 131/84 Pulse Oximetry 97 100 Oxygen Delivery Method Room Air Labs 01/12/25 07:42 Labs: Laboratory Results - last 48 hr 01/12/25 07:42 Total Testosterone 317 Fr Testosterone Dialys 38.4 Medications Medications Current Medications Acetaminophen (Acetaminophen 325 Mg Tablet) 650 mg PO Q6H PRN PRN Reason: Headache/Pain, Scale 1-10 Last Admin: 01/19/25 09:06 Dose: 650 mg Al Hydroxide/Mg Hydroxide (Magnesium Hydrox/Alum Hydrox 30 Ml Oral.Susp) 30 ml PO Q6H PRN PRN Reason: Heartburn/Nausea Last Admin: 01/19/25 10:56 Dose: 30 ml Amoxicillin/Clavulanate Potassium (Amoxicillin/Potassium Clav 875 Mg Tablet) 875 mg PO Q12H NELDA Stop: 01/28/25 08:01 Last Admin: 01/21/25 09:07 Dose: 875 mg Amphetamine/Dextroamphetamine (Dextroamphetamine/Amphetamine Xr 10 Mg Cap.Er.24h) 20 mg PO DAILY [facility] Last Admin: 01/21/25 09:07 Dose: 20 mg Amphetamine/Dextroamphetamine (Dextroamphetamine/Amphetamine Xr 10 Mg Cap.Er.24h) 10 mg PO DAILY@1400 [facility] Last Admin: 01/20/25 13:31 Dose: 10 mg Bisacodyl (Bisacodyl 10 Mg Supp.Rect) 10 mg FL DAILY PRN PRN Reason: severe Constipation Last Admin: 01/20/25 16:34 Dose: 10 mg Buprenorphine HCl (Buprenorphine Hcl 8 Mg Tab.Subl) 24 mg SUBLINGUAL DAILY [facility] Last Admin: 01/21/25 08:45 Dose: Not Given Bupropion HCl (Bupropion Hcl Xl 300 Mg Tab.Er.24h) 300 mg PO DAILY [facility] Last Admin: 01/21/25 09:08 Dose: 300 mg Docusate Sodium (Docusate Sodium 100 Mg Capsule) 100 mg PO BID [facility] Last Admin: 01/21/25 09:07 Dose: 100 mg Gabapentin (Gabapentin 400 Mg Capsule) 800 mg PO TID [facility] Last Admin: 01/21/25 09:07 Dose: 800 mg Hydroxyzine HCl (Hydroxyzine Hcl 25 Mg Tablet) 25 mg PO Q6H PRN PRN Reason: mild anxiety Last Admin: 01/20/25 16:34 Dose: 25 mg Lidocaine (Lidocaine 4 % Patch Adh..Patch) 1 patch TRANSDERMA BEDTIME [facility]; Protocol Magnesium Hydroxide (Milk Of Magnesia 30 Ml Oral.Susp) 30 ml PO DAILY PRN PRN Reason: Constipation Last Admin: 01/20/25 12:18 Dose: 30 ml Nicotine (Nicotine 21 Mg Patch.Td24) 21 mg TRANSDERMA DAILY PRN PRN Reason: smoking cessation Nicotine Polacrilex (Nicotine Polacrilex 2 Mg Gum) 4 mg BUCCAL Q2H PRN PRN Reason: Nicotine Cravings Pt Own (Androgel 1. 62)) 2 each TOPICAL DAILY NELAD Prazosin HCl (Prazosin Hcl 1 Mg Capsule) 2 mg PO BEDTIME [facility]; Protocol Last Admin: 01/20/25 20:21 Dose: Not Given Promethazine HCl (Promethazine Hcl 25 Mg Tablet) 25 mg PO Q8H PRN PRN Reason: Nausea and Vomiting Last Admin: 01/19/25 20:38 Dose: 25 mg Pseudoephedrine HCl (Pseudoephedrine Hcl 30 Mg Tablet) 30 mg PO Q6H PRN PRN Reason: Nasal Congestion Senna (Sennosides 8.6 Mg Tablet) 17.2 mg PO BEDTIME NELDA Last Admin: 01/20/25 20:12 Dose: 17.2 mg Sodium Chloride (Sodium Chloride 0.65 % Nasal 44 Ml Sprbtl) 1 spray NOSTRIL-B Q4H PRN PRN Reason: Congestion Last Admin: 01/18/25 13:41 Dose: 1 spray Tizanidine HCl (Tizanidine Hcl 4 Mg Tablet) 4 mg PO TID PRN PRN Reason: Muscle spasm Last Admin: 01/20/25 20:12 Dose: 4 mg Trazodone HCl (Trazodone Hcl 50 Mg Tablet) 50 mg PO BEDTIME MRX1 PRN PRN Reason: Insomnia Trazodone HCl (Trazodone Hcl 100 Mg Tablet) 100 mg PO BEDTIME NELDA Last Admin: 01/20/25 20:12 Dose: 100 mg Allergies Allergies Allergy/AdvReac Type Severity Reaction Status Date / Time ketorolac Allergy Hives Verified 01/11/25 13:27 olanzapine Allergy Shortness Verified 01/11/25 13:27 of Breath Assessment & Plan Assessment & Plan (1) MDD (major depressive disorder): Status: Acute Code(s): F32.9 - Major depressive disorder, single episode, unspecified (2) PTSD (post-traumatic stress disorder): Status: Acute Code(s): F43.10 - Post-traumatic stress disorder, unspecified (3) Hypogonadism in male: Status: Acute Code(s): E29.1 - Testicular hypofunction (4) Opioid use disorder, moderate, in sustained remission: Status: Acute Code(s): F11.21 - Opioid dependence, in remission Plan HPI: Patient is a 44-year-old with history of PTSD, remote substance abuse, ADHD, depression, low testosterone recently released from shelter 4 days ago who presents for suicidal ideation in the face of off medication psychosocial stressors. Patient reports that he has significant exposure to traumatic situations for his time in the and ongoing PTSD symptoms. Patient used to struggle with alcohol and opiate/pain killer addiction but has been fully sober for the past 4 years. In shelter, patient's mood was overall adequate on current medication regimen. This past week, suddenly without any warning he was released from shelter. He was not given any refills on any of his prescriptions. Off medications, without any chance to prepare for his discharge, no place to live Patient was overwhelmed, and became emotionally dysregulated. Patient became suicidal and had planned to hang himself with his belt. However he looked in the mirror, saw the tattoo of his daughter's name on his face and knew that he would not do this. Instead presented to the hospital for help. Patient was gratefully restarted on medication in the emergency room and is now feeling much better. Formulation/clinical reasoning: Patient seems to have been relatively stable while in shelter but depression anxiety researched when patient was suddenly released from shelter without any plans or medications. Patient was restarted on meds in ED and is starting to feel better. Patient is trying to put together plan Hospital course: 01/15 patient doing well; reports good mood and is future oriented. No SI at all; team helping with dispo planning 01/16 doing well; continue tx plan; will try to get testosterone from outpt pharm 01/17 continue treatment plan; patient remained stable and working on dispo plans 01/18 pt remains doing well, good mood; no depression. Pt hopefully found place to live. Discussed Androgen gel and he says he takes 1.62% two pumps daily. 1024 patient is stable continue treatment plan. pt remain in good behavioral and impulse control. He is appropriate with peers and staff and engaged in treatment pt is stable on current medication regimen 01/20: continue current management and treatment plan. 01/21: continue current management and treatment plan. Engaged in treatment. Plan: CV Q 15 minute checks Continue home medications: continue Androgen gel 1.62% daily; one pump worth per shoulder/underarm Wellbutrin XL 300 mg Trazodone 100 mg q.h.s. Gabapentin 800 mg t.i.d. Subutex 24 mg daily Vyvanse/Adderall Androgen gel (not on formulary) Reason for continued inpatient stay Substantial Risk for: harm to self and rapid decompensation Time Spent With Patient Time: Total time managing care of this patient today ____ minutes.
[2025-01-21] MEDS: Dextroamphetamine/Amphetamine XR 10 MG CAP.ER.24H PO (13:06)
[2025-01-21 20:00] VITALS: BP 139/76; PULSE 79; RESP 15; TEMP 36.5; O2SAT 97
[2025-01-21] MEDS: Lidocaine 4 % Patch ADH..PATCH 1 PATCH TRANSDERMA (20:37)
[2025-01-22] MEDS: Milk of Magnesia 30 ML ORAL.SUSP PO (07:25)
[2025-01-22] MEDS: Magnesium Hydrox/Alum Hydrox 30 ML ORAL.SUSP PO (07:25)
[2025-01-22 08:00] VITALS: BP 106/69; PULSE 76; RESP 16; TEMP 36.3; O2SAT 94
[2025-01-22] MEDS: Dextroamphetamine/Amphetamine XR 10 MG CAP.ER.24H 20 MG PO (08:36)
[2025-01-22] MEDS: buPROPion HCl XL 300 MG TAB.ER.24H PO (08:37)
--- NOTE | 2025-01-22 09:17 | P.DS_ITS ---
DS: Providers Provider Date of Service: 01/22/25 Date of admission: 01/11/25 12:56 Date of discharge: 01/22/25 Primary care physician: Unknown Physician Attending physician on admission: Edgard Bennett Consults: 01/11/25 13:29 Consult to Hospitalist Routine Comment: Consulting Provider: [facility] Reason For Exam: admission physical Attending physician on discharge: Edgard Bennett DS: Diagnosis Discharge Diagnosis (1) MDD (major depressive disorder): Status: Acute (2) PTSD (post-traumatic stress disorder): Status: Acute (3) Hypogonadism in male: Status: Acute (4) Opioid use disorder, moderate, in sustained remission: Status: Acute DS: Medications Discharge Medications Home Medications: Previous Rx's ?Medication ?Instructions ?Recorded testosterone (AndroGel) 2 pump topical DAILY 30 days #75 01/18/25 grams amoxicillin 875 mg-potassium 1 tab PO BID 6 days #12 t abs 01/22/25 clavulanate 125 mg tablet buprenorphine HCl 8 mg sublingual 24 mg (3 x 8 mg) sub lingual DAILY 01/22/25 tablet 30 days #90 tabs bupropion HCl 300 mg 24 hr tablet, 300 mg PO QAM 30 da ys #30 tabs 01/22/25 extended release (Wellbutrin XL) docusate sodium 100 mg capsule 100 mg PO BID 30 days # 60 caps 01/22/25 gabapentin 800 mg tablet 800 mg PO TID 30 days #90 ta bs 01/22/25 lidocaine 4 % topical patch 1 patch transdermal BEDTIM E PRN 01/22/25 (Lidocaine Pain Relief) lower back pain 30 days #30 ea lisdexamfetamine 30 mg capsule 30 mg PO DAILY 30 days #30 caps 01/22/25 (Vyvanse) prazosin 2 mg capsule 2 mg PO BEDTIME 30 days #30 caps 01/22/25 promethazine 25 mg tablet 25 mg PO Q8H PRN Nausea And 01/22/25 Vomiting 30 days #30 tabs sennosides 8.6 mg tablet (Senna 17.2 mg (2 x 8.6 mg) P O BEDTIME 30 01/22/25 Lax) days #60 tabs sodium chloride 0.65 % nasal spray 1 spray intranasal Q4H PRN 01/22/25 aerosol (Deep Sea Nasal) Congestion 30 days #44 mL tizanidine 4 mg tablet 4 mg PO TID PRN Muscle spasm 30 01/22/25 days #60 tabs trazodone 100 mg tablet 100 mg PO DAILY 30 days #30 tabs 01/22/25 Mental Status Exam Mental Status Exam Narrative: Pt is alert and oriented; behavior is cooperative, friendly and calm; patient is not in distress; dressed in casual attire with adequate hygiene and grooming; tattoo on his right cheek; mood is described as good and affect congruent, bright, calm; eye contact appropriate; Speech is normal rate, volume and prosody and not pressured; no psychomotor agitation/retardation present; thought process is organized and goal directed; Thought content is on tx; otherwise pertinent to relevant topics and without any delusional content, paranoid ideations or grandiosity; denies any SI/HI. Denies AVH and there is no evidence of perceptual disturbance. Patients insight and judgment fair. Data Data Completed and Pending Completed studies during hospitalization [Text1]: 01/12/25 07:42 Total Testosterone 317 Fr Testosterone Dialys 38.4 DS: Summary Hospital Course Hospital Course: HPI: Patient is a 44-year-old with history of PTSD, remote substance abuse, ADHD, depression, low testosterone recently released from [facility] ago who presents for suicidal ideation in the face of off medication psychosocial stressors. Patient reports that he has significant exposure to traumatic situations for his time in the and ongoing PTSD symptoms. Patient used to struggle with alcohol and opiate/pain killer addiction but has been fully sober for the past 4 years. In [facility], patient's mood was overall adequate on current medication regimen. This past week, suddenly without any warning he was released from [facility]. He was not given any refills on any of his prescriptions. Off medications, without any chance to prepare for his discharge, no place to live Patient was overwhelmed, and became emotionally dysregulated. Patient became suicidal and had planned to hang himself with his belt. However he looked in the mirror, saw the tattoo of his daughter's name on his face and knew that he would not do this. Instead presented to the hospital for help. Patient was gratefully restarted on medication in the emergency room and is now feeling much better. Formulation/clinical reasoning: Patient seems to have been relatively stable while in [facility] but depression anxiety researched when patient was suddenly released from [facility] without any plans or medications. Patient was restarted on meds in ED and is starting to feel better. Patient is trying to put together plan Hospital course: Patient depressed on admission but no SI at all and mood improving since restarted medication. No medication changes made although androgen gel was not available. Very soon patient felt back to his regular self, good mood, anxiety under control and future oriented. Patient remained that way throughout the rest of his admission. He remained in good behavioral and impulse control, appropriate with peers and staff and engaged in treatment. Patient was proactive and helping set up aftercare plans and was accepted to the program. His mood remained good and he felt ready to discharge and move on. Patient was not in imminent risk for harm to self or others and appropriate to return to the community for treatment. Request for discharge honored. Medication: continue Androgen gel 1.62% daily; one pump worth per shoulder/underarm Wellbutrin XL 300 mg Trazodone 100 mg q.h.s. Gabapentin 800 mg t.i.d. Subutex 24 mg daily Vyvanse Time spent discussing smoking cessation with patient: 3 to 10 minutes Status at Discharge Functional status at discharge: independent ambulation Overall status at discharge: patient is back to baseline Time Spent with Patient Time attestation: Total time managing care of this patient today ___50_ minutes. 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 Clinicians will be able to support in setting up psychiatric medication management services, therapy, community support program, and access navigator services. [facility] [Other] - 01/25/25 1:00 pm Referral Note: Patient referred to [facility], medication assisted treatment (MAT) Appointment in person at [facility] [Other] - 1 Week Referral Note: Information for [facility] in [facility] [Other] - 1 Week Referral Note: Information for [facility] in [place], [place] [facility] [Other] - 1 Week Referral Note: Gwendolyn Ivy Referral for substance use treatment [facility]: Naseem Ivy [Other] - 1 Week Referral Note: Referred to [facility] [Other] - 01/22/25 Referral Note: Patient accepted to [facility] TSS program in [place], [place] Department of Mental Health ([facility]) [Other] - 1 Week Referral Note: Patient referred to [facility] Patient should follow-up with [facility] in one week to assess status of referral. [facility] has up to 90 days to review application. Physician,Unknown J [Primary Care Provider, Medical] Referral Note: Pt to follow up with PCP after TSS program completion. Discharge Medications: New testosterone [AndroGel] 20.25 mg/1.25 gram (1.62 %) gel in metered-dose pump 2 pump topical DAILY 30 Days Qty: 75 0RF Rx Instructions: apply 1 pump amount over max area of EACH upper arm and shoulder amoxicillin-pot clavulanate 875-125 mg Tablet 1 tab PO BID 6 Days Qty: 12 0RF promethazine 25 mg Tablet 25 mg PO Q8H PRN (Reason: Nausea And Vomiting) 30 Days Qty: 30 1RF tizanidine 4 mg Tablet 4 mg PO TID PRN (Reason: Muscle spasm) 30 Days Qty: 60 0RF prazosin 2 mg capsule 2 mg PO BEDTIME 30 Days Qty: 30 1RF docusate sodium 100 mg Capsule 100 mg PO BID 30 Days Qty: 60 1RF Rx Instructions: hold for loose stool sennosides [Senna Lax] 8.6 mg Tablet 17.2 mg PO BEDTIME 30 Days Qty: 60 1RF lidocaine [Lidocaine Pain Relief] 4 % Adhesive Patch,Medicated 1 patch transdermal BEDTIME PRN (Reason: lower back pain) 30 Days Qty: 30 1RF Protocol: Apply to: Apply to: Lower back Rx Instructions: apply daily to lower back as needed gabapentin 800 mg tablet 800 mg PO TID 30 Days Qty: 90 1RF hydroxyzine HCl 25 mg Tablet 25 mg PO Q6H PRN (Reason: mild anxiety) 30 Days Qty: 60 1RF Continued trazodone 100 mg Tablet 100 mg PO DAILY 30 Days Qty: 30 1RF buprenorphine HCl 8 mg Tablet, Sublingual 24 mg SUBLINGUAL DAILY 30 Days Qty: 90 0RF bupropion HCl [Wellbutrin XL] 300 mg Tablet Extended Release 24 Hr 300 mg PO QAM 30 Days Qty: 30 1RF lisdexamfetamine [Vyvanse] 30 mg Capsule 30 mg PO DAILY 30 Days Qty: 30 0RF Discharge Orders: Discharge Order (Routine); Ordered 01/22/25 Ordered By: Edgard Bennett Diet: Regular diet Activity on Discharge: As tolerated Stand Alone Forms: Patient Portal Discharge page, Community Support Print Language: Turkish Care Plan Goals: Maintain mood and safe behaviors Take medications as prescribed Continue to pursue sobriety Practice coping skills Continue with outpatient providers and reach out to them as needed Health Concerns: Mood stability and behaviors Dental infection; continue antibiotics Chronic low back pain Plan of Treatment: Follow up with your PCP, psychiatric provider and other outpatient providers regarding above concerns Take medications as prescribed Assessment: Risk assessment at time of discharge:? Patient was interviewed prior to discharge and found to be fully oriented and without any SI or HI. Patient has improved insight and judgment and wants to continue treatment. Patient is not in imminent risk of harm to self or others and has a safety plan that includes presenting to the closest ER or calling 911 if feeling unsafe.? Patient has been observed closely by nursing and unit staff throughout admission; patient has not engaged in any behaviors that suggest dangerousness to self or others and has demonstrated appropriate behaviors and impulse control Discharge Date/Time: 01/22/25 13:08
[2025-01-22] MEDS: Dextroamphetamine/Amphetamine XR 10 MG CAP.ER.24H PO (12:07)
[2025-01-22] MEDS: Sodium Chloride 0.65 % Nasal 44 ML SPRBTL 1 SPRAY NOSTRIL-B (12:07)
[2025-01-22] MEDS: Naloxone HCl Nasal TAKE HOME 4 MG SPRAY 8 MG NOSTRILALT (12:08)
== END 2025-01-22 13:08 | disposition home or self-care (01) | DRG 751 ==
PROVIDERS: Nurse Practitioner Family; Admitting Provider Psychiatry & Neurology Psychiatry; Visit Provider Psychiatry & Neurology Psychiatry
DX: F33.2 Major depressive disorder, recurrent severe without psychotic features (principal); E29.1 Testicular hypofunction; F11.20 Opioid dependence, uncomplicated; K04.7 Periapical abscess without sinus; F43.10 Post-traumatic stress disorder, unspecified; F90.9 Attention-deficit hyperactivity disorder, unspecified type; F19.90 Other psychoactive substance use, unspecified, uncomplicated; Z79.899 Other long term (current) drug therapy
CPT/HCPCS: 36415; 80053; 80061; 83036; 84402; 84403; 84443; J0571

== ENCOUNTER → 2025-01-11 12:56 | Outpatient (BNV) | payer MEDICAID, SELFPAY | PROVIDERS: Admitting Provider Psychiatry & Neurology Psychiatry; Visit Provider Nurse Practitioner Family | DX: K04.7 Periapical abscess without sinus (principal) | CPT/HCPCS: 99221; 99231 ==

== ENCOUNTER → 2025-01-11 12:56 | Outpatient (BNV) | payer MEDICAID, SELFPAY | PROVIDERS: Admitting Provider Psychiatry & Neurology Psychiatry; Visit Provider Psychiatry & Neurology Psychiatry | DX: F32.9 Major depressive disorder, single episode, unspecified (principal); F43.10 Post-traumatic stress disorder, unspecified; E29.1 Testicular hypofunction; F11.21 Opioid dependence, in remission | CPT/HCPCS: 99222; 99232 ==